=== PATIENT | male | born 1965 | race Caucasian/White ===

== ENCOUNTER 2016-12-17 06:18 | Emergency (ER) | payer OTHER ==
[2016-12-17] MEDS ORDERED: PROMETHAZINE 25 MG/1 ML VIAL IM STA (07:18)
[2016-12-17] MEDS ORDERED: KETOROLAC 60 MG/2 ML VIAL IM STA (07:18)
[2016-12-17] MEDS ORDERED: HYDROmorphone 1 MG/ML SYRINGE IM STA ×2 (07:18→08:10)
[2016-12-17] MEDS ORDERED: HYDROmorphone 1 MG/ML SYRINGE ONE ×2 (07:28→08:20)
[2016-12-17] MEDS ORDERED: KETOROLAC 60 MG/2 ML VIAL ONE (07:28)
[2016-12-17] MEDS ORDERED: PROMETHAZINE 25 MG/1 ML VIAL ONE (07:28)
[2016-12-17] MEDS ORDERED: diazePAM 5 MG TABLET PO STA (08:10)
[2016-12-17] MEDS ORDERED: diazePAM 5 MG TABLET PO ONE (08:20)
[2016-12-17] MEDS ORDERED: DEXAMETHASONE 10 MG/ML VIAL PO STA (09:08)
[2016-12-17] MEDS ORDERED: CHERRY SYRUP 10 ML UDC PO ONE (09:40)
[2016-12-17] MEDS ORDERED: DEXAMETHASONE 10 MG/ML VIAL ONE (09:40)
== END 2016-12-17 10:05 | disposition home or self-care (01) ==
DX: S39.012A Strain of muscle, fascia and tendon of lower back, initial encounter (principal); X50.0XXA Overexertion from strenuous movement or load, initial encounter; Y93.89 Activity, other specified; Y99.8 Other external cause status; M54.16 Radiculopathy, lumbar region; I10 Essential (primary) hypertension; E11.9 Type 2 diabetes mellitus without complications; Z79.84 Long term (current) use of oral hypoglycemic drugs; Z79.82 Long term (current) use of aspirin; F17.200 Nicotine dependence, unspecified, uncomplicated
CPT/HCPCS: 96372; 99283; 99284; A9270; J1170

== ENCOUNTER 2016-12-20 08:40 | Outpatient (CLI) | payer OTHER | END 2016-12-20 08:41 | disposition home or self-care (01) | DX: R07.9 Chest pain, unspecified (principal); I10 Essential (primary) hypertension ==

== ENCOUNTER 2016-12-25 17:27 | Emergency (ER) | payer OTHER ==
--- NOTE | 2016-12-25 17:52 | ED Physician Documentation ---
PD HPI BACK PAIN - Stated complaint Stated Complaint: LOWER BACK PAIN - Chief complaint Chief Complaint: Back Pain - History obtained from History obtained from: Patient - History of Present Illness Timing - duration: Weeks Timing - details: Still present Location: Lower, Right, Left Quality: Pain, Spasm Associated symptoms: No: Fever, Weakness, Numbness, Incontinent of urine Improves with: Meds (improved just moderately with 2-3 percocet 3 times daily.) . No: Rest Worsened by: Movement, Twisting Contributing factors: Twisting Similar symptoms before: No diagnosis Recently seen: Emergency Dept (in past week or so for this pain, given Rx for meds. Seen by [facility] ED 2-3 days ago and got IM/IV meds and was discharged after overnight for pain control. Referred to back specialist and referral going through. He had CT scan of the back, which patient says did not show obvious cause.) Review of Systems Constitutional: denies: Fever, Chills : denies: Incontinent Skin: denies: Rash, Lesions Neurologic: denies: Focal weakness, Numbness PD PAST MEDICAL HISTORY - Past Medical History Cardiovascular: Hypertension, High cholesterol Endocrine/Autoimmune: Type 2 diabetes Musculoskeletal: Chronic back pain - Past Surgical History Ortho: Spine surgery Cardiovascular: Coronary stent - Present Medications Home Medications: Ambulatory Orders Medication Instructions Recorded Confirmed Amlodipine Besylate 10 mg PO DAILY 12/17/16 12/25/16 Aspirin 81 mg PO DAILY 12/17/16 12/25/16 Atorvastatin Calcium 10 mg PO DAILY 12/17/16 12/25/16 Cyclobenzaprine [Flexeril] 10 mg PO Q8HR 12/17/16 12/25/16 Diazepam 5 mg PO TID PRN #20 tablet 12/17/16 12/25/16 Hydrochlorothiazide 75 mg PO DAILY 12/17/16 12/25/16 Ibuprofen [Motrin] 600 mg PO Q6HR 12/17/16 12/25/16 Metformin HCl 425 mg PO BID 12/17/16 12/25/16 Metoprolol Tartrate 25 mg PO BID 12/17/16 12/25/16 Potassium Chloride 10 meq PO DAILY 12/17/16 12/25/16 Cyclobenzaprine [Flexeril] 10 mg PO TID PRN #30 tablet 12/25/16 Diazepam 5 mg PO TID PRN #20 tablet 12/25/16 oxyCODONE [Roxicodone] 10 mg PO Q6H PRN #30 tablet 12/25/16 - Allergies Allergies/Adverse Reactions: Allergies Allergy/AdvReac Type Severity Reaction Status Date / Time No Known Drug Allergies Allergy Verified 12/25/16 17:37 - Social History Does the pt smoke?: Yes Smoking Status: Current every day smoker Does the pt drink ETOH?: No Does the pt have substance abuse?: No - Immunizations Immunizations are current?: Yes - POLST Patient has POLST: No PD ED PE NORMAL - Vitals Vital signs reviewed: Yes - General General: Alert and oriented X 3, Well developed/nourished, Other (appears in pain) - Neck Neck: Supple, no meningeal sign, No adenopathy - Cardiac Cardiac: RRR, No murmur - Respiratory Respiratory: Clear bilaterally - Abdomen Abdomen: Normal bowel sounds, Soft, Non tender, Non distended - Male Male : Deferred - Rectal Rectal: Deferred - Back Back: No CVA TTP, Other (tender lower lumbar left and right. No rash nor sores. ) - Derm Derm: Normal color, Warm and dry, No rash - Extremities Extremities: No edema, No calf tenderness / cord - Neuro Neuro: Alert and oriented X 3, No motor deficit, No sensory deficit, Normal speech - Psych Psych: Normal mood, Normal affect Results - Vitals Vitals: Oxygen O2 Source Room air PD MEDICAL DECISION MAKING - ED course Complexity details: considered differential (having significant pain but not an indication for emergent MRI. Routine MRI is not available at our facility right now. ), d/w patient Departure - Departure Disposition: 01 Home, Self Care Condition: Stable Record reviewed to determine appropriate education?: Yes Instructions: ED Sciatica, ED Low Back Pain General Follow-Up: [facility] [Provider Group] Prescriptions: Diazepam 5 mg PO TID PRN #20 tablet PRN Reason: Spasms Cyclobenzaprine [Flexeril] 10 mg PO TID PRN #30 tablet PRN Reason: Spasms oxyCODONE [Roxicodone] 10 mg PO Q6H PRN #30 tablet PRN Reason: Pain Comments: Follow up with [facility] and[facility]or [facility] regarding [facility]. Continue heat to the low back and gentle range of motion to reduce stiffness. Flexeril for muscle spasms, or Diazepam for worse muscle spasms. Oxycodone for pain as you have been doing. I wrote for higher strength tablets (10 mg instead of 5 mg) so be aware of the dosing change (1 - 1 1/2 tabs at a time). Discharge Date/Time: 12/25/16 18:44
[2016-12-25] MEDS ORDERED: KETOROLAC 60 MG/2 ML VIAL IM STA (18:06)
[2016-12-25] MEDS ORDERED: CYCLOBENZAPRINE 10 MG TABLET PO STA (18:06)
[2016-12-25] MEDS ORDERED: HYDROmorphone 1 MG/ML SYRINGE IM STA (18:06)
[2016-12-25] MEDS ORDERED: CYCLOBENZAPRINE 10 MG TABLET PO ONE (18:12)
[2016-12-25] MEDS ORDERED: HYDROmorphone 1 MG/ML SYRINGE ONE (18:12)
[2016-12-25] MEDS ORDERED: KETOROLAC 60 MG/2 ML VIAL ONE (18:12)
[2016-12-25 18:45] VITALS: BP 132/87
== END 2016-12-25 18:44 | disposition home or self-care (01) ==
LOC: ED 17:27
DX: M54.5 Low back pain (principal); G89.29 Other chronic pain; I10 Essential (primary) hypertension; E78.00 Pure hypercholesterolemia, unspecified; E11.9 Type 2 diabetes mellitus without complications; Z79.84 Long term (current) use of oral hypoglycemic drugs; Z79.82 Long term (current) use of aspirin; F17.200 Nicotine dependence, unspecified, uncomplicated
CPT/HCPCS: 96372; 99283; 99284; A9270; J1170

== ENCOUNTER 2016-12-29 | Outpatient (CLI) | payer OTHER | END 2016-12-29 22:25 | disposition short-term general hospital (02) | CPT/HCPCS: A0425; A0428 ==

== ENCOUNTER 2016-12-29 19:06 | Emergency (ER) | payer OTHER ==
[2016-12-29] MEDS ORDERED: HYDROmorphone 1 MG/ML SYRINGE IVP STA ×2 (20:05→21:20)
[2016-12-29] MEDS ORDERED: HYDROmorphone 1 MG/ML SYRINGE ONE ×2 (20:21→21:26)
== END 2016-12-29 22:21 | disposition short-term general hospital (02) ==
DX: M54.17 Radiculopathy, lumbosacral region (principal); M54.42 Lumbago with sciatica, left side; D72.829 Elevated white blood cell count, unspecified; E11.9 Type 2 diabetes mellitus without complications; Z79.84 Long term (current) use of oral hypoglycemic drugs; I10 Essential (primary) hypertension; I25.10 Atherosclerotic heart disease of native coronary artery without angina pectoris; Z95.5 Presence of coronary angioplasty implant and graft; Z79.82 Long term (current) use of aspirin; F17.200 Nicotine dependence, unspecified, uncomplicated
CPT/HCPCS: 36415; 80048; 85025; 85651; 86140; 87040; 96374; 96375; 99284; 99285; J1170

== ENCOUNTER 2016-12-31 06:29 | Emergency (ER) | payer OTHER ==
[2016-12-31] MEDS ORDERED: HYDROmorphone 1 MG/ML SYRINGE IM STA (07:02)
[2016-12-31] MEDS ORDERED: KETOROLAC 60 MG/2 ML VIAL IM STA (07:03)
[2016-12-31] MEDS ORDERED: DEXAMETHASONE 10 MG/ML VIAL PO STA (07:03)
[2016-12-31] MEDS ORDERED: diazePAM INJ 5 MG/ML SYRINGE IM STA (07:04)
[2016-12-31] MEDS ORDERED: HYDROmorphone 1 MG/ML SYRINGE ONE (07:14)
[2016-12-31] MEDS ORDERED: KETOROLAC 60 MG/2 ML VIAL ONE (07:15)
[2016-12-31] MEDS ORDERED: DEXAMETHASONE 10 MG/ML VIAL ONE (07:15)
[2016-12-31] MEDS ORDERED: CHERRY SYRUP 10 ML UDC PO ONE (07:15)
[2016-12-31] MEDS ORDERED: diazePAM INJ 5 MG/ML SYRINGE ONE (07:15)
== END 2016-12-31 09:14 | disposition home or self-care (01) ==
DX: M54.17 Radiculopathy, lumbosacral region (principal); I10 Essential (primary) hypertension; E11.9 Type 2 diabetes mellitus without complications; F17.200 Nicotine dependence, unspecified, uncomplicated; Z95.5 Presence of coronary angioplasty implant and graft; Z79.82 Long term (current) use of aspirin; Z79.84 Long term (current) use of oral hypoglycemic drugs
CPT/HCPCS: 96372; 99283; 99284; A9270; J1170

== ENCOUNTER 2017-01-04 11:38 | Emergency (ER) | payer OTHER ==
--- NOTE | 2017-01-04 12:39 | ED Physician Documentation ---
PD HPI BACK PAIN - Stated complaint Stated Complaint: BACK PAIN - Chief complaint Chief Complaint: Back Pain - History obtained from History obtained from: Patient - History of Present Illness Timing - onset: How many months ago (couple) Timing - details: Gradual onset, Still present Location: Lower, Left Quality: Pain Associated symptoms: Numbness (lateral lower leg c/w L4), Incontinent of urine ( he says he has had urinary incontinence during sleep last night. Had been told to watch for that.). No: Fever, Weakness Worsened by: Movement Similar symptoms before: Diagnosis (L4 disc protrusion and radiculitis.) Recently seen: Emergency Dept (many visits so far. Trying to get referral to back surgeon through [facility] and is supposed to have appt in the next few days.) Review of Systems Constitutional: denies: Fever, Chills GI: denies: Abdominal Pain, Constipation, Diarrhea, Bloody / black stool Skin: denies: Rash, Lesions PD PAST MEDICAL HISTORY - Past Medical History Past Medical History: Yes Cardiovascular: Hypertension, High cholesterol Endocrine/Autoimmune: Type 2 diabetes Musculoskeletal: Chronic back pain - Past Surgical History Ortho: Spine surgery Cardiovascular: Coronary stent - Present Medications Home Medications: Ambulatory Orders Medication Instructions Recorded Confirmed Amlodipine Besylate 10 mg PO DAILY 12/17/16 01/04/17 Aspirin 81 mg PO DAILY 12/17/16 01/04/17 Atorvastatin Calcium 10 mg PO DAILY 12/17/16 01/04/17 Cyclobenzaprine [Flexeril] 10 mg PO Q8HR 12/17/16 01/04/17 Diazepam 5 mg PO TID PRN #20 tablet 12/17/16 01/04/17 Hydrochlorothiazide 75 mg PO DAILY 12/17/16 01/04/17 Ibuprofen [Motrin] 600 mg PO Q6HR 12/17/16 01/04/17 Metformin HCl 425 mg PO BID 12/17/16 01/04/17 Metoprolol Tartrate 25 mg PO BID 12/17/16 01/04/17 Potassium Chloride 10 meq PO DAILY 12/17/16 01/04/17 Cyclobenzaprine [Flexeril] 10 mg PO TID PRN #30 tablet 12/25/16 01/04/17 oxyCODONE [Roxicodone] 10 mg PO Q6H PRN #30 tablet 12/25/16 01/04/17 Dexamethasone [Decadron] 4 mg PO DAILY #5 tablet 12/31/16 01/04/17 HYDROmorphone [Dilaudid] 2 mg PO Q6H PRN #30 tablet 12/31/16 01/04/17 HYDROmorphone [Dilaudid] 2 mg PO TID #20 tablet 01/04/17 oxyCODONE [Roxicodone] 10 mg PO TID #20 tablet 01/04/17 - Allergies Allergies/Adverse Reactions: Allergies Allergy/AdvReac Type Severity Reaction Status Date / Time No Known Drug Allergies Allergy Verified 01/04/17 11:41 - Social History Does the pt smoke?: Yes Smoking Status: Current every day smoker Does the pt drink ETOH?: No Does the pt have substance abuse?: No - Immunizations Immunizations are current?: Yes - POLST Patient has POLST: No PD ED PE NORMAL - Vitals Vital signs reviewed: Yes - General General: Alert and oriented X 3, Well developed/nourished, Other (appears in pain) - Back Back: No CVA TTP, Other (tender left lower back muscles. No rash. ) - Derm Derm: Normal color, Warm and dry, No rash - Extremities Extremities: Normal ROM s pain, No edema, No calf tenderness / cord - Neuro Neuro: No motor deficit, Normal speech, Other (normal sensation in perirectal and scrotum areas with sharp/dull discrimination. He has rectal tone. Bladder scanner shows appropriate residual and he did urinate here voluntarily. There is less sensation lateral left lower leg as previous. Mild faint weakness for dorsiflexion left foot. Rest is normal motor. ) Results - Vitals Vitals: Vital Signs - 24 hr 01/04/17 01/04/17 01/04/17 11:40 13:56 15:07 Temperature 36.1 C L Heart Rate 100 100 90 Respiratory 18 18 18 Rate Blood Pressure 147/101 H 148/94 H 144/89 H O2 Saturation 100 97 95 Oxygen O2 Source Room air - Labs Labs: Laboratory Tests 01/04/17 13:10 Urine Color YELLOW Urine Clarity CLEAR Urine pH 7.5 Ur Specific [place] 1.020 Urine Protein NEGATIVE Urine Glucose (UA) 250 H Urine Ketones NEGATIVE Urine Occult Blood NEGATIVE Urine Nitrite NEGATIVE Urine Bilirubin NEGATIVE Urine Urobilinogen 0.2 (NORMAL) Ur Leukocyte Esterase NEGATIVE Ur Microscopic Review NOT INDICATED Urine Culture Comments NOT INDICATED PD MEDICAL DECISION MAKING - ED course Complexity details: considered differential (he has had incontinence of urine by report. He is able to give urine sample here and has residual about 100 ml, so not obvious incontinence nor retention. Has normal rectal tone, sensation on penis and perirectal area. L4 area decreased sensation on left still. ), d/w patient Departure - Departure Disposition: 01 Home, Self Care Clinical Impression: Lumbosacral radiculopathy at L4 Condition: Stable Record reviewed to determine appropriate education?: Yes Instructions: ED Low Back Pain General Follow-Up: Reji Hewitt MD [Primary Care Provider] - [facility] [Provider Group] Prescriptions: HYDROmorphone [Dilaudid] 2 mg PO TID #20 tablet oxyCODONE [Roxicodone] 10 mg PO TID #20 tablet Comments: Continue pain medications. [facility] get [facility]. Your ongoing pain medications really need to transition to [facility], so please try to get back to them as soon as you can get appt. Discharge Date/Time: 01/04/17 15:09
[2017-01-04] MEDS ORDERED: KETOROLAC 60 MG/2 ML VIAL IM STA (12:52)
[2017-01-04] MEDS ORDERED: HYDROmorphone 1 MG/ML SYRINGE IM STA (12:52)
[2017-01-04] MEDS ORDERED: KETOROLAC 60 MG/2 ML VIAL ONE (12:55)
[2017-01-04] MEDS ORDERED: HYDROmorphone 1 MG/ML SYRINGE ONE (12:55)
[2017-01-04 14:03] LABS: BILIRUBIN,URINE NEGATIVE (NEGATIVE); PH,URINE 7.5 PH (5.0-7.5)
[2017-01-04 14:08] LABS: UA CHARGE (STRIP ONLY) YES; UR CULTURE IF IND NOT INDICATED
[2017-01-04 15:07] VITALS: BP 144/89
== END 2017-01-04 15:09 | disposition home or self-care (01) ==
LOC: ED 11:38
DX: M51.16 Intervertebral disc disorders with radiculopathy, lumbar region (principal); R32 Unspecified urinary incontinence; I10 Essential (primary) hypertension; E11.9 Type 2 diabetes mellitus without complications; Z79.84 Long term (current) use of oral hypoglycemic drugs; F17.200 Nicotine dependence, unspecified, uncomplicated; Z95.5 Presence of coronary angioplasty implant and graft; Z79.82 Long term (current) use of aspirin
CPT/HCPCS: 51798; 81003; 96372; 99283; 99284; J1170; 81001; 87086

== ENCOUNTER 2017-01-07 23:03 | Emergency (ER) | payer OTHER ==
[2017-01-08] MEDS ORDERED: PROMETHAZINE 25 MG/1 ML VIAL IM STA (00:44)
[2017-01-08] MEDS ORDERED: HYDROmorphone 1 MG/ML SYRINGE IM STA (00:44)
[2017-01-08] MEDS ORDERED: HYDROmorphone 1 MG/ML SYRINGE ONE (00:49)
[2017-01-08] MEDS ORDERED: PROMETHAZINE 25 MG/1 ML VIAL ONE (00:49)
[2017-01-08] MEDS ORDERED: KETOROLAC 60 MG/2 ML VIAL IM STA (01:38)
[2017-01-08] MEDS ORDERED: DEXAMETHASONE 10 MG/ML VIAL PO STA (01:39)
[2017-01-08] MEDS ORDERED: CHERRY SYRUP 10 ML UDC PO ONE (01:42)
[2017-01-08] MEDS ORDERED: DEXAMETHASONE 10 MG/ML VIAL ONE (01:42)
[2017-01-08] MEDS ORDERED: KETOROLAC 60 MG/2 ML VIAL ONE (01:42)
== END 2017-01-08 03:21 | disposition home or self-care (01) ==
DX: M54.16 Radiculopathy, lumbar region (principal); Z79.82 Long term (current) use of aspirin; I10 Essential (primary) hypertension; F17.200 Nicotine dependence, unspecified, uncomplicated
CPT/HCPCS: 96372; 99283; 99284; A9270; J1170

== ENCOUNTER 2017-01-11 | Outpatient (CLI) | payer OTHER | END 2017-01-11 21:24 | disposition critical access hospital (66) | DX: M54.5 Low back pain (principal) | CPT/HCPCS: A0425; A0429 ==

== ENCOUNTER 2017-01-11 21:34 | Emergency (ER) | payer OTHER ==
[2017-01-11] MEDS ORDERED: PROMETHAZINE 25 MG/1 ML VIAL IM STA (22:24)
[2017-01-11] MEDS ORDERED: DEXAMETHASONE 10 MG/ML VIAL PO STA (22:24)
[2017-01-11] MEDS ORDERED: HYDROmorphone 1 MG/ML SYRINGE IM STA ×2 (22:24→22:25)
[2017-01-11] MEDS ORDERED: KETOROLAC 60 MG/2 ML VIAL IM STA (22:26)
[2017-01-11] MEDS ORDERED: PROMETHAZINE 25 MG/1 ML VIAL ONE ×2 (22:36→22:40)
[2017-01-11] MEDS ORDERED: CHERRY SYRUP 10 ML UDC PO ONE ×2 (22:37→22:40)
[2017-01-11] MEDS ORDERED: HYDROmorphone 1 MG/ML SYRINGE ONE (22:37)
[2017-01-11] MEDS ORDERED: KETOROLAC 60 MG/2 ML VIAL ONE (22:37)
[2017-01-11] MEDS ORDERED: DEXAMETHASONE 10 MG/ML VIAL ONE (22:37)
== END 2017-01-12 00:05 | disposition home or self-care (01) ==
DX: M54.16 Radiculopathy, lumbar region (principal); R32 Unspecified urinary incontinence; I10 Essential (primary) hypertension; E11.9 Type 2 diabetes mellitus without complications; E78.00 Pure hypercholesterolemia, unspecified; Z79.82 Long term (current) use of aspirin; F17.200 Nicotine dependence, unspecified, uncomplicated
CPT/HCPCS: 96372; 99283; 99284; A9270; J1170

== ENCOUNTER 2017-01-16 01:43 | Emergency (ER) | payer OTHER ==
[2017-01-16] MEDS ORDERED: KETOROLAC 60 MG/2 ML VIAL IM STA (02:19)
[2017-01-16] MEDS ORDERED: HYDROmorphone 1 MG/ML SYRINGE IM STA ×2 (02:19→06:54)
[2017-01-16] MEDS ORDERED: PROMETHAZINE 25 MG/1 ML VIAL IM STA (02:20)
[2017-01-16] MEDS ORDERED: HYDROmorphone 1 MG/ML SYRINGE ONE ×2 (02:21→07:03)
[2017-01-16] MEDS ORDERED: PROMETHAZINE 25 MG/1 ML VIAL ONE (02:21)
[2017-01-16] MEDS ORDERED: KETOROLAC 60 MG/2 ML VIAL ONE (02:22)
[2017-01-16] MEDS ORDERED: SODIUM CHLORIDE 0.9% 1,000 ML IV ONE ×2 (03:09→03:51)
[2017-01-16] MEDS ORDERED: POTASSIUM BICARB 25 MEQ TABLET PO STA (03:51)
[2017-01-16] MEDS ORDERED: POTASSIUM BICARB 25 MEQ TABLET PO ONE (04:06)
[2017-01-16] MEDS ORDERED: INSULIN REGULAR HUMAN 100 UNIT/1 ML 10 ML MDV IVP STA (04:55)
[2017-01-16] MEDS ORDERED: INSULIN REGULAR HUMAN 100 UNIT/1 ML 10 ML MDV ONE (05:16)
== END 2017-01-16 07:16 | disposition home or self-care (01) ==
DX: M54.17 Radiculopathy, lumbosacral region (principal); E86.0 Dehydration; E11.65 Type 2 diabetes mellitus with hyperglycemia; I10 Essential (primary) hypertension; E78.00 Pure hypercholesterolemia, unspecified; G89.29 Other chronic pain; Z79.82 Long term (current) use of aspirin; Z79.84 Long term (current) use of oral hypoglycemic drugs; Z87.891 Personal history of nicotine dependence

== ENCOUNTER 2017-01-16 19:28 | Emergency (ER) | payer OTHER ==
[2017-01-16] MEDS ORDERED: LIDOCAINE PATCH 5% TOP STA (21:30)
[2017-01-16] MEDS ORDERED: KETOROLAC 60 MG/2 ML VIAL IM STA (21:30)
[2017-01-16] MEDS ORDERED: KETOROLAC 30 MG/ML VIAL IVP STA (21:33)
[2017-01-16] MEDS ORDERED: ACETAMINOPHEN 1,000 MG/100 ML 100 ML IV STA (21:33)
[2017-01-16] MEDS ORDERED: LIDOCAINE PATCH 5% TOP ONE (21:35)
[2017-01-16] MEDS ORDERED: ACETAMINOPHEN 1,000 MG/100 ML 100 ML IV ONE (21:35)
[2017-01-16] MEDS ORDERED: KETOROLAC 30 MG/ML VIAL ONE (21:35)
[2017-01-16] MEDS ORDERED: KETAMINE 500 MG/10 ML VIAL IVP STA (22:37)
[2017-01-16] MEDS ORDERED: KETAMINE 500 MG/10 ML VIAL ONE (22:53)
== END 2017-01-16 23:35 | disposition home or self-care (01) ==
DX: M54.17 Radiculopathy, lumbosacral region (principal); G89.29 Other chronic pain; E86.0 Dehydration; I10 Essential (primary) hypertension; E78.00 Pure hypercholesterolemia, unspecified; E11.65 Type 2 diabetes mellitus with hyperglycemia; Z79.84 Long term (current) use of oral hypoglycemic drugs; Z79.82 Long term (current) use of aspirin; Z87.891 Personal history of nicotine dependence
CPT/HCPCS: 36415; 80053; 83690; 85025; 96360; 96361; 96372; 99283; 99284; 99285; A9270; J0131; J1170; J1815

== ENCOUNTER 2017-07-04 09:32 | Outpatient (CLI) | payer OTHER ==
[2017-07-04 10:15] LABS: BASOPHILS # (AUTO) 0.1 10^3/uL (0.0-0.1); BASOPHILS % (AUTO) 0.9 %; EOSINOPHILS # (AUTO) 0.2 10^3/uL (0.0-0.7); EOSINOPHILS % (AUTO) 2.3 %; HCT - HEMATOCRIT 46.4 % (42.0-52.0); HGB - HEMOGLOBIN 16.1 g/dL (14.0-18.0); LYMPHOCYTES # (AUTO) 1.9 10^3/uL (1.5-3.5); LYMPHOCYTES % (AUTO) 20.7 %; MEAN CORPUSCULAR HEMOGLOBIN 31.5 pg (27.0-31.0); MEAN CORPUSCULAR HGB CONC 34.7 g/dL (32.0-36.0); MEAN CORPUSCULAR VOLUME 90.7 fL (80.0-94.0); MEAN PLATELET VOLUME 9.4 fL (7.4-11.4); MONOCYTES # (AUTO) 0.6 10^3/uL (0.0-1.0); MONOCYTES % (AUTO) 6.4 %; NEUTROPHILS # (AUTO) 6.2 10^3/uL (1.5-6.6); NEUTROPHILS % (AUTO) 69.7 %; NUCLEATED RED BLOOD CELLS AUTO 0.1 /100WBC; RED BLOOD COUNT 5.12 10^6/uL (4.70-6.10); RED CELL DISTRIBUTION WIDTH 13.8 % (12.0-15.0); UNCORRECTED WHITE BLOOD COUNT 8.9 x10^3/uL; WHITE BLOOD COUNT 8.9 x10^3/uL (4.8-10.8)
[2017-07-04 10:52] LABS: HEMOGLOBIN A1C 1.18 g/dL
[2017-07-04 10:55] LABS: ALBUMIN/GLOBULIN RATIO 1.6 (1.0-2.2); BILIRUBIN,TOTAL 0.9 mg/dL (0.2-1.0); BUN - BLOOD UREA NITROGEN 15 mg/dL (6-20); CALCIUM 9.4 mg/dL (8.5-10.3); CARBON DIOXIDE - CO2 27 mmol/L (21-32); CHLORIDE 101 mmol/L (101-111); CHOLESTEROL 144 mg/dL; CREATININE 1.1 mg/dL (0.6-1.2); GFR - MDRD 70 (>89); GLUCOSE 220 mg/dL (70-100); HDL CHOLESTEROL 29 mg/dL; LDL/HDL RATIO 2.4 (<3.6); SODIUM 138 mmol/L (135-145); TOTAL PROTEIN 7.4 g/dL (6.7-8.2); TRIGLYCERIDES 227 mg/dL; VLDL CHOLESTEROL 45 mg/dL
== END 2017-07-04 09:33 | disposition home or self-care (01) ==
LOC: LAB 09:32
PROVIDERS: ATTEND Internal Medicine
DX: E03.9 Hypothyroidism, unspecified (principal)
CPT/HCPCS: 36415; 80053; 80061; 83036; 84153; 84443; 85025

== ENCOUNTER 2017-10-19 13:44 | Emergency (ER) | payer OTHER ==
[2017-10-19] MEDS ORDERED: KETOROLAC 30 MG/ML VIAL IVP STA (14:47)
[2017-10-19] MEDS ORDERED: diazePAM 5 MG TABLET PO STA (14:48)
[2017-10-19] MEDS ORDERED: KETOROLAC 30 MG/ML VIAL ONE (14:55)
[2017-10-19] MEDS ORDERED: diazePAM 5 MG TABLET PO ONE (14:55)
[2017-10-19] MEDS ORDERED: HYDROmorphone 1 MG/ML SYRINGE IM STA ×2 (15:47→16:38)
[2017-10-19] MEDS ORDERED: HYDROmorphone 1 MG/ML SYRINGE ONE ×2 (15:58→16:59)
--- NOTE | 2017-10-19 16:40 | ED Physician Documentation ---
History of Present Illness - Stated complaint Stated Complaint: LOW BACK AND BODY PAIN - Chief complaint Chief Complaint: Back Pain - History obtained from History obtained from: Patient (pt here for acute increase in his low back pain. he staes that yesterday that he bent over to pick something up and had an increase in pain.) Review of Systems Constitutional: denies: Fever, Chills Cardiac: denies: Chest pain / pressure, Palpitations Respiratory: denies: Dyspnea, Cough, Hemoptysis GI: denies: Abdominal Pain, Nausea, Vomiting, Constipation, Diarrhea : denies: Dysuria, Unable to Void, Incontinent, Hematuria Skin: denies: Rash, Lesions Musculoskeletal: reports: Back pain. denies: Joint pain, Extremity swelling, Joint swelling Neurologic: reports: Other (tingling down left leg to knee). denies: Generalized weakness, Focal weakness, Headache PD PAST MEDICAL HISTORY - Past Medical History Past Medical History: Yes Cardiovascular: Hypertension, High cholesterol Endocrine/Autoimmune: Type 2 diabetes Musculoskeletal: Chronic back pain - Past Surgical History Past Surgical History: Yes Ortho: Spine surgery Cardiovascular: Coronary stent - Present Medications Home Medications: Ambulatory Orders Medication Instructions Recorded Confirmed Amlodipine Besylate 10 mg PO DAILY 12/17/16 10/19/17 Aspirin 81 mg PO DAILY 12/17/16 10/19/17 Atorvastatin Calcium 10 mg PO DAILY 12/17/16 10/19/17 Ibuprofen [Motrin] 600 mg PO Q6HR 12/17/16 10/19/17 Metformin HCl 425 mg PO BID 12/17/16 10/19/17 Metoprolol Tartrate 25 mg PO BID 12/17/16 10/19/17 Potassium Chloride 10 meq PO DAILY 12/17/16 10/19/17 hydroCHLOROthiazide 75 mg PO DAILY 12/17/16 10/19/17 [Hydrochlorothiazide] Gabapentin 1,000 mg PO TID 10/19/17 10/19/17 oxyCODONE [Roxicodone] 5 mg PO TID 10/19/17 10/19/17 - Allergies Allergies/Adverse Reactions: Allergies Allergy/AdvReac Type Severity Reaction Status Date / Time No Known Drug Allergies Allergy Verified 10/19/17 13:57 - Social History Does the pt smoke?: No Smoking Status: Never smoker Does the pt drink ETOH?: No Does the pt have substance abuse?: No - Immunizations Immunizations are current?: Yes - POLST Patient has POLST: No PD ED PE NORMAL - Vitals Vital signs reviewed: Yes - General General: Alert and oriented X 3, Well developed/nourished - Cardiac Cardiac: RRR, No murmur - Respiratory Respiratory: No respiratory distress, Clear bilaterally - Abdomen Abdomen: Soft, Non tender, Non distended - Derm Derm: Normal color, Warm and dry, No rash - Extremities Extremities: No deformity, Normal ROM s pain, No edema. No: No tenderness to palpate (TTP anterior right thigh ) - Neuro Neuro: Alert and oriented X 3 Eye Opening: Spontaneous Motor: Obeys Commands Verbal: Oriented GCS Score: 15 Results - Vitals Vitals: Vital Signs - 24 hr 10/19/17 10/19/17 10/19/17 13:53 15:54 16:00 Temperature 36.7 C 36.7 C 36.8 C Heart Rate 109 H 104 H 101 H Respiratory 16 24 22 Rate Blood Pressure 164/106 H 154/93 H 143/86 H O2 Saturation 97 100 98 Oxygen O2 Source Room air PD MEDICAL DECISION MAKING - ED course Complexity details: d/w patient ED course: Pt with acute on chronic lower back pain No indication of CA or fracture. Pt given IM medications in the ER. he has pain medications at home. he has a pain specialist. will follow up with his primary care provider. Departure - Departure Disposition: 01 Home, Self Care Clinical Impression: Back pain Condition: Good Instructions: ED Sciatica, ED Low Back Pain Injury Follow-Up: primary,care provider [Other] Comments: Return to the ER for any new or worsening symptoms. You need to call your face painter to discuss further pain control.
[2017-10-19 17:42] VITALS: BP 161/98
== END 2017-10-19 17:37 | disposition home or self-care (01) ==
LOC: ED 13:44
DX: M54.5 Low back pain (principal); G89.29 Other chronic pain; I10 Essential (primary) hypertension; E78.00 Pure hypercholesterolemia, unspecified; E11.9 Type 2 diabetes mellitus without complications; Z79.84 Long term (current) use of oral hypoglycemic drugs; Z79.82 Long term (current) use of aspirin
CPT/HCPCS: 96372; 96374; 99283; 99284; A9270; J1170

== ENCOUNTER 2017-10-20 23:05 | Emergency (ER) | payer OTHER ==
--- NOTE | 2017-10-21 00:35 | ED Physician Documentation ---
PD HPI BACK PAIN - Stated complaint Stated Complaint: L LEG/BACK PAIN - Chief complaint Chief Complaint: Back Pain - History obtained from History obtained from: Patient - History of Present Illness Timing - onset: How many days ago (3 days ago) Timing - duration: Days (had been having ongoing back pain but much less subsequent to surgery January and July. Then felt onset of back pain with just bending over and simple lifting several days ago and having significant pain and spasms of lumbar area. He called his back surgeon who will be seeing him Sunday. Also emailed his Pain Clinic provider. He is taking increased dose of Oxycodone from 4 tabs to 6 tabs daily, without much improvement in pain. Seen in ED yesterday with IM meds that improved pain only moderately and was worse again few hours later.) Timing - details: Abrupt onset, Still present, Waxing and waning Location: Lower, Left Quality: Pain, Spasm, Sharp Associated symptoms: Numbness (left anterolateral thigh, but stops at knee.). No: Fever, Weakness Improves with: No: Rest Worsened by: Movement, Twisting, Palpation Contributing factors: Twisting Similar symptoms before: Diagnosis (lumbar disc problems with pinched nerves) Recently seen: Not recently seen Review of Systems Constitutional: denies: Fever, Chills Throat: denies: Sore throat Cardiac: denies: Chest pain / pressure Respiratory: denies: Cough GI: denies: Abdominal Pain, Nausea, Vomiting, Diarrhea : denies: Dysuria, Frequency, Incontinent Skin: denies: Rash, Lesions Musculoskeletal: reports: Back pain Neurologic: reports: Numbness (lateral thigh left). denies: Focal weakness Endocrine: denies: Weight loss, Easy bruising / bleeding Immunocompromised: denies: Immunocompromised PD PAST MEDICAL HISTORY - Past Medical History Cardiovascular: Hypertension, High cholesterol Endocrine/Autoimmune: Type 2 diabetes Musculoskeletal: Chronic back pain - Past Surgical History Past Surgical History: Yes Ortho: Spine surgery Cardiovascular: Coronary stent - Present Medications Home Medications: Ambulatory Orders Medication Instructions Recorded Confirmed Amlodipine Besylate 10 mg PO DAILY 12/17/16 10/20/17 Aspirin 81 mg PO DAILY 12/17/16 10/20/17 Atorvastatin Calcium 10 mg PO DAILY 12/17/16 10/20/17 Ibuprofen [Motrin] 600 mg PO Q6HR 12/17/16 10/20/17 Metformin HCl 425 mg PO BID 12/17/16 10/20/17 Metoprolol Tartrate 25 mg PO BID 12/17/16 10/20/17 Potassium Chloride 10 meq PO DAILY 12/17/16 10/20/17 hydroCHLOROthiazide 75 mg PO DAILY 12/17/16 10/20/17 [Hydrochlorothiazide] Gabapentin 1,000 mg PO TID 10/19/17 10/20/17 oxyCODONE [Roxicodone] 5 mg PO TID 10/19/17 10/20/17 Baclofen 10 mg PO TID #15 tablet 10/21/17 Naproxen [Naprosyn] 500 mg PO BID PRN #15 tablet 10/21/17 - Allergies Allergies/Adverse Reactions: Allergies Allergy/AdvReac Type Severity Reaction Status Date / Time No Known Drug Allergies Allergy Verified 10/20/17 23:21 - Social History Does the pt smoke?: No Smoking Status: Never smoker Does the pt drink ETOH?: No Does the pt have substance abuse?: No - Immunizations Immunizations are current?: Yes - POLST Patient has POLST: No PD ED PE NORMAL - Vitals Vital signs reviewed: Yes - General General: Alert and oriented X 3, Well developed/nourished, Other (appears in pain, with moaning and cries out with ROM of the low back. ) - Neck Neck: Supple, no meningeal sign, No adenopathy - Cardiac Cardiac: RRR, No murmur - Respiratory Respiratory: Clear bilaterally - Abdomen Abdomen: Normal bowel sounds, Soft, Non tender, Non distended - Male Male : Deferred - Rectal Rectal: Deferred - Back Back: No CVA TTP, Other (tender lumbar left side muscles without rash nor redness. ) - Derm Derm: Normal color, Warm and dry - Extremities Extremities: No tenderness to palpate, Normal ROM s pain, No edema, No calf tenderness / cord - Neuro Neuro: Alert and oriented X 3, appraisal analyst 2-12 intact, No motor deficit, Other (less sensation to touch lateral anterior left thigh. Normal reflex at knee. Good movement/sensation in ankles/feet. ) Results - Vitals Vitals: Vital Signs - 24 hr 10/20/17 10/21/17 10/21/17 23:16 01:47 02:41 Temperature 36.9 C Heart Rate 124 H 100 100 Respiratory 18 20 18 Rate Blood Pressure 153/102 H 167/83 H 183/106 H O2 Saturation 97 100 100 10/21/17 10/21/17 10/21/17 03:53 04:49 05:14 Temperature 37.0 C Heart Rate 100 105 H 107 H Respiratory 20 18 16 Rate Blood Pressure 175/98 H 178/100 H 169/101 H O2 Saturation 100 98 96 Oxygen O2 Source Room air PD MEDICAL DECISION MAKING - ED course Complexity details: reviewed old records (had fairly intractable pain on many ED visits December 2016 prior to back surgery. No visits until yesterday. Appears very uncomfortable. No real indication to need emergent imaging. Will try IV meds, and prior ED notes from December show that he had gotten good improvement with Ketamine in addition to usual other meds. Can try that as well. ), reviewed results, re-evaluated patient (took several doses and rounds of medications to decrease the pain to tolerable level (5-6 pain level). Can change muscle relaxant - he says Baclofen had worked well in past. He is on Oxycodone on pain contract, so meds through the Pain Clinic. Short term can increase dose of his PO meds. ), considered differential, d/w patient Departure - Departure Disposition: Home, Self Care Clinical Impression: Lumbar back pain Sciatica Qualifiers: Laterality: left Qualified Code(s): M54.32 - Sciatica, left side Condition: Stable Record reviewed to determine appropriate education?: Yes Instructions: ED Sciatica Follow-Up: BARBARA [facility]IN [facility] [Primary Care Provider] - Prescriptions: Baclofen 10 mg PO TID #15 tablet Naproxen [Naprosyn] 500 mg PO BID PRN #15 tablet PRN Reason: Pain Comments: Continue current pain meds, with increased dose from 5 mg 4 times daily to 10 mg for tomorrow and Sunday, until seen by [facility] as planned and can talk with your Pain Clinic. Baclofen for muscle spasms as needed. Continue gabapentin and other usual medications. Discharge Date/Time: 10/21/17 05:16
[2017-10-21] MEDS ORDERED: HYDROmorphone 1 MG/ML SYRINGE IVP STA ×3 (00:49→04:42)
[2017-10-21] MEDS ORDERED: KETOROLAC 60 MG/2 ML VIAL IVP STA (00:49)
[2017-10-21] MEDS ORDERED: KETAMINE 500 MG/10 ML VIAL IVP STA ×2 (00:50→03:37)
[2017-10-21] MEDS ORDERED: SODIUM CHLORIDE 0.9% 1,000 ML IV ONE (00:51)
[2017-10-21] MEDS ORDERED: DEXAMETHASONE 10 MG/ML VIAL IVP STA (00:52)
[2017-10-21] MEDS ORDERED: HYDROmorphone 1 MG/ML SYRINGE ONE ×3 (00:59→04:45)
[2017-10-21] MEDS ORDERED: KETOROLAC 30 MG/ML VIAL ONE (00:59)
[2017-10-21] MEDS ORDERED: DEXAMETHASONE 10 MG/ML VIAL ONE (02:16)
[2017-10-21] MEDS ORDERED: KETAMINE 500 MG/10 ML VIAL ONE ×2 (02:16→03:55)
[2017-10-21] MEDS ORDERED: diazePAM INJ 5 MG/ML SYRINGE IVP STA (03:37)
[2017-10-21] MEDS ORDERED: diazePAM INJ 5 MG/ML SYRINGE ONE (03:55)
[2017-10-21 05:16] VITALS: BP 169/101
== END 2017-10-21 05:16 | disposition home or self-care (01) ==
LOC: ED 23:05
DX: M54.42 Lumbago with sciatica, left side (principal); I10 Essential (primary) hypertension; E11.9 Type 2 diabetes mellitus without complications; Z79.84 Long term (current) use of oral hypoglycemic drugs; E78.00 Pure hypercholesterolemia, unspecified; Z79.82 Long term (current) use of aspirin
CPT/HCPCS: 96374; 96375; 96376; 99283; 99284; J1170

== ENCOUNTER 2017-10-25 04:13 | Emergency (ER) | payer OTHER ==
[2017-10-25] MEDS ORDERED: diazePAM 5 MG TABLET PO STA ×2 (04:25→05:56)
[2017-10-25] MEDS ORDERED: KETAMINE 500 MG/10 ML VIAL IM STA (04:27)
[2017-10-25] MEDS ORDERED: KETAMINE 500 MG/10 ML VIAL ONE (04:38)
--- NOTE | 2017-10-25 04:49 | ED Physician Documentation ---
PD HPI BACK INJURY - Stated complaint Stated Complaint: BACK PX - History obtained from History obtained from: Patient, Family - History of Present Illness Location: Left, Lower Type of injury: Fall Where injury occurred: Home Timing - onset: Today Timing - details: Abrupt onset Quality: Pain, Spasm Associated symptoms: No: Fever, Weakness, Numbness, Incontinent of urine Similar symptoms before: Work up / diagnostics, Treatment, Follow up Recently seen: Clinic - Additional information Additional information: Patient is a 52 year old male with a history of chronic back pain, with previous spinal surgeries and multiple ER visits. patient stated that tonight he was getting up to go urinate and he was trying to ambulate with his walker and he fall, exacerbating his back pain. patient states that he doesn't know how he fell exactly, or what he landed on. (no loc, just didn't know how he landed). Patient states that he did follow up with his spinal doctor recently and they switched him to methadon and stated that he might need another surgery. Review of Systems Constitutional: denies: Fever, Chills Eyes: reports: Reviewed and negative Ears: reports: Reviewed and negative Nose: reports: Reviewed and negative Throat: reports: Reviewed and negative Cardiac: reports: Reviewed and negative Respiratory: reports: Reviewed and negative GI: reports: Reviewed and negative : reports: Reviewed and negative Skin: reports: Reviewed and negative Musculoskeletal: reports: Back pain, Extremity pain Neurologic: denies: Generalized weakness, Focal weakness, Numbness, Headache, Head injury PD PAST MEDICAL HISTORY - Past Medical History Cardiovascular: Hypertension, High cholesterol Endocrine/Autoimmune: Type 2 diabetes Musculoskeletal: Chronic back pain - Past Surgical History Past Surgical History: Yes Ortho: Spine surgery Cardiovascular: Coronary stent - Present Medications Home Medications: Ambulatory Orders Medication Instructions Recorded Confirmed Amlodipine Besylate 10 mg PO DAILY 12/17/16 10/25/17 Aspirin 81 mg PO DAILY 12/17/16 10/25/17 Atorvastatin Calcium 10 mg PO DAILY 12/17/16 10/25/17 Ibuprofen [Motrin] 600 mg PO Q6HR 12/17/16 10/25/17 Metformin HCl 425 mg PO BID 12/17/16 10/25/17 Metoprolol Tartrate 25 mg PO BID 12/17/16 10/25/17 Potassium Chloride 10 meq PO DAILY 12/17/16 10/25/17 hydroCHLOROthiazide 75 mg PO DAILY 12/17/16 10/25/17 [Hydrochlorothiazide] Gabapentin 1,000 mg PO TID 10/19/17 10/25/17 Baclofen 10 mg PO TID #15 tablet 10/21/17 10/25/17 Naproxen [Naprosyn] 500 mg PO BID PRN #15 tablet 10/21/17 10/25/17 Methadone 1 tab PO BID 10/25/17 10/25/17 - Allergies Allergies/Adverse Reactions: Allergies Allergy/AdvReac Type Severity Reaction Status Date / Time No Known Drug Allergies Allergy Verified 10/25/17 04:22 - Social History Does the pt smoke?: No Smoking Status: Never smoker Does the pt drink ETOH?: No Does the pt have substance abuse?: No - Immunizations Immunizations are current?: Yes - POLST Patient has POLST: No Results - Vitals Vitals: Vital Signs - 24 hr 10/25/17 10/25/17 10/25/17 04:19 04:44 05:21 Temperature 36.5 C Heart Rate 111 H 110 H 104 H Respiratory 20 18 18 Rate Blood Pressure 190/102 H 150/80 H 164/66 H O2 Saturation 97 98 98 Oxygen O2 Source Room air - Labs Labs: Laboratory Tests 10/25/17 05:16 POC Whole Bld Glucose 204 H - Rads (name of study) lumbar spine Radiology: Final report received (no acute fracture or dislocation) PD MEDICAL DECISION MAKING - ED course Complexity details: reviewed old records, reviewed results, re-evaluated patient , considered differential, d/w patient ED course: Patient was seen and examined at bedside. patient was in moderate pain. Patient is on a pain contract and a diabetic so patient was treated with ketamine 20mg IM. Due to the fall, imaging was ordered. When patient returned from imaging the results were reviewed. there were no acute abnormalities. Patient was moving his extremity and showed no neurological deficit. Patient was treated with valium 10mg. Patient's pain was chronic in nature. Patient required no further emergent work up and was stable for discharge with outpatient follow up. Departure - Departure Disposition: Home, Self Care Clinical Impression: Radiculitis Condition: Good Instructions: ED Low Back Pain Injury Follow-Up: primary,care provider [Other] - Tomorrow Comments: Your diagnostics today were within normal limits. there are no acute abnormalities on your imaging. You will need to continue to follow up with your pmd, pain specialist and surgeon for further pain management. You may return to the emergency department for new symptoms.
--- NOTE | 2017-10-25 05:34 | XRAY Preliminary Report ---
Exam: XR SACRUM/COCCYX IMPRESSION: 1. No acute abnormality seen. [facility] SITE ID: [id number]
--- NOTE | 2017-10-25 05:36 | XRAY Preliminary Report ---
Exam: XR LUMBAR SPINE 2 VIEW IMPRESSION: 1. Multilevel degenerative changes. No acute abnormality seen. [facility] SITE ID: [id number]
--- NOTE | 2017-10-25 05:37 | XRAY Report ---
EXAM: SACRUM AND COCCYX RADIOGRAPHY EXAM DATE: 10/25/2017 05:23 AM. HISTORY: Fall, low back pain. COMPARISONS: None. TECHNIQUE: 3 views. FINDINGS: Alignment: Unremarkable. Bones: No fracture seen. Joints: No dislocation. Soft Tissues: Grossly unremarkable. IMPRESSION: 1. No acute abnormality seen. [facility] Referring Provider Line: [phone] SITE ID: [id number]
--- NOTE | 2017-10-25 05:38 | XRAY Report ---
EXAM: LUMBOSACRAL SPINE RADIOGRAPHY EXAM DATE: 10/25/2017 05:22 AM. CLINICAL HISTORY: Low back pain after injury. COMPARISONS: None. TECHNIQUE: 2 views. FINDINGS: Alignment: Unremarkable. Bones: Five [id number] lumbar vertebral bodies are present. No fractures or bone lesions. Disks: Multilevel degenerative disk disease, especially L3-L4 and L4-L5. Facets: Degenerative joint disease in the lower lumbar spine. Sacroiliac Joints: Unremarkable. Soft Tissues: Vascular calcifications. IMPRESSION: 1. Multilevel degenerative changes. No acute abnormality seen. [facility] Referring Provider Line: [phone] SITE ID: [id number]
[2017-10-25] MEDS ORDERED: diazePAM 5 MG TABLET PO ONE (06:09)
[2017-10-25 06:41] VITALS: BP 200/96
== END 2017-10-25 06:45 | disposition home or self-care (01) ==
LOC: ED 04:13
DX: M54.16 Radiculopathy, lumbar region (principal); W01.0XXA Fall on same level from slipping, tripping and stumbling without subsequent striking against object, initial encounter; Y93.01 Activity, walking, marching and hiking; Y92.019 Unspecified place in single-family (private) house as the place of occurrence of the external cause; M54.5 Low back pain; G89.29 Other chronic pain; I10 Essential (primary) hypertension; E78.00 Pure hypercholesterolemia, unspecified; E11.9 Type 2 diabetes mellitus without complications; Z79.84 Long term (current) use of oral hypoglycemic drugs; Z79.82 Long term (current) use of aspirin
CPT/HCPCS: 72100; 72220; 96372; 99283; A9270

== ENCOUNTER 2018-08-14 13:16 | Day surgery (SDC) | payer OTHER ==
[2018-08-14] MEDS ORDERED: LACTATED RINGERS 1,000 ML IV ONE (14:01)
--- NOTE | 2018-08-14 15:26 | ANESTHESIA ---
Pre-Anesthesia VS, & Labs - Diagnosis history of polyps - Procedure colonoscopy Vital Signs: Temp Pulse Resp BP Pulse Ox 36.2 C L 92 16 130/97 H 98 08/14/18 14:08 08/14/18 14:08 08/14/18 14:08 08/14/18 14:08 08/14/18 14:08 Height 5 ft 10 in Weight (kg) 107 kg Body Mass Index 34.4 - NPO >8 hours - Lab Results Current Lab Results: Laboratory Tests 08/14/18 14:14: POC Whole Bld Glucose 177 H Lab results reviewed: Yes Home Medications and Allergies Home Medications: Ambulatory Orders Medication Instructions Recorded Confirmed Amlodipine Besylate 10 mg PO DAILY 12/17/16 08/13/18 Aspirin 81 mg PO DAILY 12/17/16 08/14/18 Atorvastatin Calcium 10 mg PO DAILY 12/17/16 08/13/18 Metformin HCl 850 mg PO BID 12/17/16 08/13/18 Metoprolol Tartrate 75 mg PO BID 12/17/16 08/14/18 Potassium Chloride 10 meq PO DAILY 12/17/16 08/13/18 hydroCHLOROthiazide 75 mg PO DAILY 12/17/16 08/13/18 [Hydrochlorothiazide] Gabapentin 800 mg PO BID 10/19/17 08/14/18 Naproxen [Naprosyn] 500 mg PO BID PRN #15 tablet 10/21/17 08/13/18 Amlodipine Besylate 10 mg PO DAILY 12/17/16 Aspirin 81 mg PO DAILY 12/17/16 Atorvastatin Calcium 10 mg PO DAILY 12/17/16 Metformin HCl 850 mg PO BID 12/17/16 Metoprolol Tartrate 75 mg PO BID 12/17/16 Potassium Chloride 10 meq PO DAILY 12/17/16 hydroCHLOROthiazide [Hydrochlorothiazide] 75 mg PO DAILY 12/17/16 Gabapentin 800 mg PO BID 10/19/17 Allergies/Adverse Reactions: Allergies Allergy/AdvReac Type Severity Reaction Status Date / Time No Known Drug Allergies Allergy Verified 10/25/17 04:22 Anes History & Medical History - Anesthetic History Anesthesia Complications: reports: No previous complications Family history of Anesthesia Complications: Denies Family history of Malignant Hyperthermia: Denies - Medical History Cardiovascular: reports: Hypertension, High cholesterol, Coronary artery disease Pulmonary: reports: Sleep apnea Gastrointestinal: reports: None Urinary: reports: Benign prostate hypertrophy Musculoskeletal: reports: Chronic back pain Endocrine/Autoimmune: reports: Type 2 diabetes Skin: reports: None Smoking Status: Never smoker - Surgical History General: Colonoscopy Cardiothoracic: Coronary stent Orthopedic: Spine surgery Exam General: Alert, Oriented x3, Cooperative Dental: Other (cap) Mouth Openin Fingerbreadth Neck Mobility: Limited Mallampati classification: II Thyromental Distance: greater than 6 cm Respiratory: Lungs clear, Normal breath sounds, No respiratory distress, No accessory muscle use Cardiovascular: Regular rate, Normal S1, Normal S2, No murmurs Mental/Cognitive Status: Alert/Oriented X3, Normal for patient Cognitive Status: Within normal limits Plan Anesthesia Type: MAC Consent for Procedure(s) Verified and Reviewed: Yes Code Status: Attempt Resuscitation ASA classification: 2-Mild systemic disease Is this case an emergency?: No
[2018-08-14] MEDS ORDERED: LIDOCAINE-MPF 2% 5 ML VIAL IM ONE (16:45)
[2018-08-14] MEDS ORDERED: PROPOFOL 200 MG/20 ML VIAL IVP ONE (16:45)
[2018-08-14 16:59] VITALS: BP 145/86
== END 2018-08-14 13:17 | disposition home or self-care (01) ==
LOC: SDS 13:16
PROVIDERS: ATTEND Internal Medicine
PROC: 0DBP8ZZ Excision of Rectum, Via Natural or Artificial Opening Endoscopic (ICD-10-PCS; principal; 2018-08-14 14:30)
DX: Z12.11 Encounter for screening for malignant neoplasm of colon (principal); K62.1 Rectal polyp; K64.1 Second degree hemorrhoids; K62.89 Other specified diseases of anus and rectum; K57.30 Diverticulosis of large intestine without perforation or abscess without bleeding; I10 Essential (primary) hypertension; G47.30 Sleep apnea, unspecified; I25.10 Atherosclerotic heart disease of native coronary artery without angina pectoris; E11.9 Type 2 diabetes mellitus without complications; Z95.5 Presence of coronary angioplasty implant and graft; Z79.84 Long term (current) use of oral hypoglycemic drugs; Z79.899 Other long term (current) drug therapy; Z79.82 Long term (current) use of aspirin
CPT/HCPCS: 45380; J7120

== ENCOUNTER 2019-01-28 08:14 | Outpatient (CLI) | payer OTHER ==
[2019-01-28 09:28] LABS: HB2 TOTAL 17.7 g/dL; HEMOGLOBIN A1C 0.85 g/dL; HEMOGLOBIN A1C % 6.5 % (4.6-6.2)
[2019-01-28 09:59] LABS: ALBUMIN 4.6 g/dL (3.2-5.5); ALBUMIN/GLOBULIN RATIO 1.4 (1.0-2.2); ALKALINE PHOSPHATASE 51 IU/L (42-121); ALT ALANINE AMINOTRANSFERASE 73 IU/L (10-60); AST ASPARTATE AMINOTRANSFERASE 34 IU/L (10-42); BILIRUBIN,TOTAL 0.6 mg/dL (0.2-1.0); BUN - BLOOD UREA NITROGEN 28 mg/dL (6-20); CHOL/HDL RATIO 4.1 (<5.0); CHOLESTEROL 114 mg/dL; CREATININE 1.3 mg/dL (0.6-1.2); GFR - MDRD 57 (>89); HDL CHOLESTEROL 28 mg/dL; LDL CHOLESTEROL,CALCULATED 35 mg/dL; LDL/HDL RATIO 1.3 (<3.6); TOTAL PROTEIN 7.9 g/dL (6.7-8.2); VLDL CHOLESTEROL 51 mg/dL
[2019-01-28 10:07] LABS: CALCIUM 9.1 mg/dL (8.5-10.3); CARBON DIOXIDE - CO2 27 mmol/L (21-32); CHLORIDE 100 mmol/L (101-111); GLUCOSE 172 mg/dL (70-100); SODIUM 140 mmol/L (135-145)
== END 2019-01-28 08:15 | disposition home or self-care (01) ==
LOC: LAB 08:14
PROVIDERS: ATTEND Internal Medicine
DX: E11.8 Type 2 diabetes mellitus with unspecified complications (principal); E78.5 Hyperlipidemia, unspecified
CPT/HCPCS: 36415; 80053; 80061; 83036; 83721

== ENCOUNTER 2019-07-16 13:50 | Outpatient (CLI) | payer OTHER | END 2019-07-16 13:51 | disposition home or self-care (01) | LOC: LAB 13:50 | PROVIDERS: ATTEND Urology | DX: C61 Malignant neoplasm of prostate (principal); N39.0 Urinary tract infection, site not specified | CPT/HCPCS: 87086 ==

== ENCOUNTER 2022-09-18 13:52 | Outpatient (CLI) | payer OTHER ==
[2022-09-18 14:22] LABS: BASOPHILS # (AUTO) 0.1 10^3/uL (0.0-0.1); BASOPHILS % (AUTO) 0.9 %; EOSINOPHILS # (AUTO) 0.2 10^3/uL (0.0-0.7); EOSINOPHILS % (AUTO) 2.3 %; HCT - HEMATOCRIT 46.6 % (42.0-52.0); HGB - HEMOGLOBIN 16.5 g/dL (14.0-18.0); LYMPHOCYTES # (AUTO) 2.5 10^3/uL (1.5-3.5); LYMPHOCYTES % (AUTO) 23.7 %; MEAN CORPUSCULAR HEMOGLOBIN 31.8 pg (27.0-31.0); MEAN CORPUSCULAR HGB CONC 35.4 g/dL (32.0-36.0); MEAN CORPUSCULAR VOLUME 89.8 fL (80.0-94.0); MEAN PLATELET VOLUME 10.8 fL (7.4-11.4); MONOCYTES # (AUTO) 0.8 10^3/uL (0.0-1.0); MONOCYTES % (AUTO) 7.2 %; NEUTROPHILS # (AUTO) 6.8 10^3/uL (1.5-6.6); NEUTROPHILS % (AUTO) 64.9 %; PLT - PLATELET COUNT 266 10^3/uL (130-450); RED BLOOD COUNT 5.19 10^6/uL (4.70-6.10); RED CELL DISTRIBUTION WIDTH 13.2 % (12.0-15.0); WHITE BLOOD COUNT 10.4 x10^3/uL (4.8-10.8)
[2022-09-18 14:41] LABS: ALBUMIN 4.5 g/dL (3.2-5.5); ALBUMIN/GLOBULIN RATIO 1.4 (1.0-2.2); ALKALINE PHOSPHATASE 55 IU/L (42-121); ALT ALANINE AMINOTRANSFERASE 93 IU/L (10-60); AST ASPARTATE AMINOTRANSFERASE 45 IU/L (10-42); BILIRUBIN,TOTAL 0.6 mg/dL (0.2-1.0); BUN - BLOOD UREA NITROGEN 20 mg/dL (6-20); CALCIUM 9.2 mg/dL (8.5-10.3); CARBON DIOXIDE - CO2 23 mmol/L (21-32); CHLORIDE 101 mmol/L (101-111); CHOL/HDL RATIO 6.2 (<5.0); CHOLESTEROL 197 mg/dL; CREATININE 1.6 mg/dL (0.6-1.2); GFR - MDRD 44 (>89); GLUCOSE 181 mg/dL (70-100); HDL CHOLESTEROL 32 mg/dL; LDL CHOLESTEROL,CALCULATED 98 mg/dL; LDL/HDL RATIO 3.1 (<3.6); POTASSIUM 4.3 mmol/L (3.5-5.0); SODIUM 136 mmol/L (135-145); TOTAL PROTEIN 7.7 g/dL (6.7-8.2); TRIGLYCERIDES 337 mg/dL; VLDL CHOLESTEROL 67 mg/dL
[2022-09-18 21:08] LABS: ESTIMATED AVERAGE GLUCOSE 209 mg/dL (70-100); HEMOGLOBIN A1c% 8.9 % (4.27-6.07)
== END 2022-09-18 13:53 | disposition home or self-care (01) ==
LOC: LAB 13:52
PROVIDERS: ATTEND Internal Medicine
DX: I10 Essential (primary) hypertension (principal); E11.8 Type 2 diabetes mellitus with unspecified complications; E78.5 Hyperlipidemia, unspecified
CPT/HCPCS: 36415; 80053; 80061; 83036; 83721; 85025

== ENCOUNTER 2023-01-29 14:09 | Outpatient (CLI) | payer OTHER | END 2023-01-29 14:10 | disposition home or self-care (01) | LOC: LAB 14:09 | PROVIDERS: ATTEND Urology | DX: C61 Malignant neoplasm of prostate (principal) | CPT/HCPCS: 36415; 84153 ==

== ENCOUNTER 2023-08-08 15:16 | Outpatient (CLI) | payer OTHER | END 2023-08-08 15:17 | disposition home or self-care (01) | LOC: LAB 15:16 | PROVIDERS: ATTEND Physician Assistant | DX: C61 Malignant neoplasm of prostate (principal); Z12.5 Encounter for screening for malignant neoplasm of prostate | CPT/HCPCS: 36415; 84153 ==

== ENCOUNTER 2024-01-22 13:32 | Outpatient (CLI) | payer OTHER ==
[2024-01-22 13:45] LABS: BASOPHILS # (AUTO) 0.1 10^3/uL (0.0-0.1); BASOPHILS % (AUTO) 0.8 %; EOSINOPHILS # (AUTO) 0.3 10^3/uL (0.0-0.7); EOSINOPHILS % (AUTO) 2.7 %; HCT - HEMATOCRIT 42.8 % (42.0-52.0); LYMPHOCYTES # (AUTO) 2.3 10^3/uL (1.5-3.5); MEAN CORPUSCULAR HEMOGLOBIN 32.2 pg (27.0-31.0); MEAN CORPUSCULAR VOLUME 91.8 fL (80.0-94.0); MEAN PLATELET VOLUME 10.7 fL (7.4-11.4); MONOCYTES # (AUTO) 1.1 10^3/uL (0.0-1.0); MONOCYTES % (AUTO) 9.6 %; NEUTROPHILS # (AUTO) 7.4 10^3/uL (1.5-6.6); NEUTROPHILS % (AUTO) 65.5 %; PLT - PLATELET COUNT 218 10^3/uL (130-450); RED BLOOD COUNT 4.66 10^6/uL (4.70-6.10); RED CELL DISTRIBUTION WIDTH 13.1 % (12.0-15.0); WHITE BLOOD COUNT 11.3 x10^3/uL (4.8-10.8)
[2024-01-22 14:25] LABS: ALBUMIN 4.4 g/dL (3.2-5.5); ALBUMIN/GLOBULIN RATIO 1.6 (1.0-2.2); ALKALINE PHOSPHATASE 52 IU/L (42-121); ALT ALANINE AMINOTRANSFERASE 62 IU/L (10-60); AST ASPARTATE AMINOTRANSFERASE 25 IU/L (10-42); BILIRUBIN,TOTAL 0.6 mg/dL (0.2-1.0); BUN - BLOOD UREA NITROGEN 23 mg/dL (6-20); CALCIUM 9.5 mg/dL (8.5-10.3); CARBON DIOXIDE - CO2 26 mmol/L (21-32); CHLORIDE 104 mmol/L (101-111); CHOL/HDL RATIO 5.3 (<5.0); CHOLESTEROL 174 mg/dL; CREATININE 1.3 mg/dL (0.6-1.3); GFR - MDRD 56 (>89); GLUCOSE 143 mg/dL (74-104); HDL CHOLESTEROL 33 mg/dL; SODIUM 137 mmol/L (135-145); TOTAL PROTEIN 7.2 g/dL (6.4-8.9); TRIGLYCERIDES 412 mg/dL (48-352)
[2024-01-22 14:40] LABS: CREATININE,URINE 176.3 mg/dL; MICROALBUM/CREATININE RATIO,UR 78.3 ug/mg (<30.0); MICROALBUMIN,URINE 13.8 mg/dL
[2024-01-22 15:25] LABS: LDL CHOLESTEROL,DIRECT 91 mg/dL (75-193); LDLD/HDL RATIO 2.8 (<3.6)
[2024-01-22 21:36] LABS: ESTIMATED AVERAGE GLUCOSE 209 mg/dL (70-100); HEMOGLOBIN A1c% 8.9 % (4.27-6.07)
== END 2024-01-22 13:33 | disposition home or self-care (01) ==
LOC: LAB 13:32
PROVIDERS: ATTEND Physician Assistant
DX: E11.65 Type 2 diabetes mellitus with hyperglycemia (principal); E78.2 Mixed hyperlipidemia
CPT/HCPCS: 36415; 80053; 80061; 82043; 82570; 83036; 83721; 85025

== ENCOUNTER 2024-05-14 10:04 | Outpatient (CLI) | payer OTHER | END 2024-05-14 10:05 | disposition home or self-care (01) | LOC: LAB 10:04 | PROVIDERS: ATTEND Urology | DX: C61 Malignant neoplasm of prostate (principal) | CPT/HCPCS: 36415; 84153 ==

== ENCOUNTER 2024-06-06 10:57 | Outpatient (CLI) | payer OTHER ==
[2024-06-06 11:10] LABS: BASOPHILS # (AUTO) 0.1 10^3/uL (0.0-0.1); BASOPHILS % (AUTO) 0.8 %; EOSINOPHILS # (AUTO) 0.4 10^3/uL (0.0-0.7); EOSINOPHILS % (AUTO) 3.6 %; HGB - HEMOGLOBIN 15.7 g/dL (14.0-18.0); LYMPHOCYTES # (AUTO) 2.1 10^3/uL (1.5-3.5); LYMPHOCYTES % (AUTO) 21.8 %; MEAN CORPUSCULAR HEMOGLOBIN 31.5 pg (27.0-31.0); MEAN CORPUSCULAR HGB CONC 34.9 g/dL (32.0-36.0); MEAN CORPUSCULAR VOLUME 90.2 fL (80.0-94.0); MEAN PLATELET VOLUME 10.8 fL (7.4-11.4); MONOCYTES # (AUTO) 0.8 10^3/uL (0.0-1.0); MONOCYTES % (AUTO) 8.1 %; NEUTROPHILS # (AUTO) 6.2 10^3/uL (1.5-6.6); NEUTROPHILS % (AUTO) 65.1 %; PLT - PLATELET COUNT 256 10^3/uL (130-450); RED BLOOD COUNT 4.99 10^6/uL (4.70-6.10); RED CELL DISTRIBUTION WIDTH 12.9 % (12.0-15.0); WHITE BLOOD COUNT 9.6 x10^3/uL (4.8-10.8)
[2024-06-06 11:35] LABS: ESTIMATED AVERAGE GLUCOSE 166 mg/dL (70-100); HEMOGLOBIN A1c% 7.4 % (4.27-6.07)
[2024-06-06 12:39] LABS: ALBUMIN 4.6 g/dL (3.2-5.5); ALBUMIN/GLOBULIN RATIO 1.7 (1.0-2.2); ALKALINE PHOSPHATASE 53 IU/L (42-121); ALT ALANINE AMINOTRANSFERASE 54 IU/L (10-60); AST ASPARTATE AMINOTRANSFERASE 23 IU/L (10-42); BILIRUBIN,TOTAL 0.4 mg/dL (0.2-1.0); BUN - BLOOD UREA NITROGEN 14 mg/dL (6-20); CALCIUM 8.9 mg/dL (8.5-10.3); CARBON DIOXIDE - CO2 24 mmol/L (21-32); CHLORIDE 102 mmol/L (101-111); CHOL/HDL RATIO 6.6 (<5.0); CHOLESTEROL 192 mg/dL; CREATININE 1.1 mg/dL (0.6-1.3); GFR - MDRD 68 (>89); GLUCOSE 227 mg/dL (74-104); HDL CHOLESTEROL 29 mg/dL; LDL CHOLESTEROL,CALCULATED 91 mg/dL; LDL/HDL RATIO 3.1 (<3.6); POTASSIUM 3.9 mmol/L (3.5-4.5); SODIUM 135 mmol/L (135-145); TOTAL PROTEIN 7.3 g/dL (6.4-8.9); TRIGLYCERIDES 361 mg/dL; VLDL CHOLESTEROL 72 mg/dL
== END 2024-06-06 10:58 | disposition home or self-care (01) ==
LOC: LAB 10:57
PROVIDERS: ATTEND Physician Assistant
DX: I10 Essential (primary) hypertension (principal); E78.2 Mixed hyperlipidemia; E11.65 Type 2 diabetes mellitus with hyperglycemia; E11.8 Type 2 diabetes mellitus with unspecified complications
CPT/HCPCS: 36415; 80053; 80061; 82043; 82570; 83036; 83721; 85025

== ENCOUNTER 2025-07-21 10:51 | Observation (INO) ==
--- OUTSIDE RECORDS SUMMARY | 2025-07-21 11:42 | EXTERNAL MEDICAL SUMMARY RPT | Continuity of Care Document ---
Author Organization [facility] Address [address] [place] [id number] Phone Problems date description facility 2025-03-20 12:58 Malignant neoplasm of prostate [facility] 2025-03-20 13:02 Malignant neoplasm of prostate [facility] 2025-04-23 12:39 Type 2 diabetes mellitus withou t complications [employer] 2025-04-23 12:39 Essential (primary) hypertensio n [employer] 2025-04-23 12:39 Unspecified abnormal finding in specimens from other organs, systems and tissues [facility] 2025-04-27 09:39 Malignant neoplasm of prostate [facility] 2025-04-30 15:58 Malignant neoplasm of prostate [facility] 2025-05-01 00:01 Malignant neoplasm of prostate [facility] 2025-05-11 09:16 Malignant neoplasm of prostate [facility] 2025-05-11 09:16 Atherosclerotic hear t disease of jamul coronary artery without angina pectoris [employer] 2025-05-11 09:16 [facility] 2025-05-11 09:16 Hesitancy of micturition [employer] 2025-05-11 09:39 Malignant neoplasm of prostate [facility] 2025-05-11 09:39 Atherosclerotic hear t disease of jamul coronary artery without angina pectoris [facility] 2025-05-11 09:39 Other [facility] 2025-05-11 09:39 Hesitancy of micturition [employer] 2025-06-01 11:28 Malignant neoplasm of prostate [facility] 2025-06-01 11:28 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 [employer] 2025-06-01 11:28 Other specified diseases of [facility]25-06-01 12:34 Malignant neoplasm of prostate [facility] 2025-06-01 12:34 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 [facility] 2025-06-01 12:34 Other specified diseases of [facility] 2025-06-01 13:37 Malignant neoplasm of prostate [facility] 2025-06-01 13:37 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 [facility] 2025-06-01 13:37 Secondary malignant neoplasm of bone [facility] 2025-06-01 13:37 Other specified diseases of [facility] 2025-06-01 13:43 Malignant neoplasm of prostate [facility] 2025-06-01 13:43 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 [facility] 2025-06-01 13:43 Other specified diseases of [facility] 2025-06-02 00:04 Malignant neoplasm of prostate [facility] 2025-06-02 00:04 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 [facility] 2025-06-02 00:04 Other specified diseases of [facility] 2025-06-02 06:43 Malignant neoplasm of prostate [facility] 2025-06-02 06:43 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 [facility] 2025-06-02 06:43 Secondary malignant neoplasm of bone [facility] 2025-06-02 13:03 Malignant neoplasm of prostate [facility] 2025-06-02 13:03 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 [facility] 2025-06-02 13:03 Secondary malignant neoplasm of bone [facility] 2025-06-02 13:03 Other specified diseases of [facility] 2025-06-02 13:03 Encounter for genera l adult medical examination without abnormal findings [facility] 2025-06-02 14:20 Other specified diseases of [facility] 2025-06-03 13:05 Malignant neoplasm of prostate [facility] 2025-06-03 13:05 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 [facility] 2025-06-15 21:49 Other specified diseases of [facility] 2025-06-16 09:38 Other specified diseases of [facility] 2025-06-16 13:58 Other specified diseases of [facility] 2025-06-19 06:18 Other specified diseases of [facility] 2025-06-19 06:45 Other specified diseases of [facility] 2025-06-20 00:05 Other specified diseases of [facility] 2025-06-22 09:48 Malignant neoplasm of prostate [facility] 2025-06-22 09:48 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 2025-06-23 14:34 Malignant neoplasm of prostate 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 [facility] 2025 12:27 Malignant neoplasm of prostate [facility] 2025-06-25 14:35 Malignant neoplasm of prostate [facility] 2025-06-25 14:35 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 [facility] 2025-06-25 14:35 Secondary malignant neoplasm of bone [facility] 2025-06-25 14:35 Other specified diseases of [facility] 2025-06-25 14:35 Encounter for [facility] adult medical examination without abnormal findings [facility] 2025-06-25 14:35 Procedure and treatm ent not carried out, unspecified reason [facility] 2025-06-30 14:02 Other specified diseases of [facility] 2025-06-30 14:02 Personal history of colon polyp s, unspecified [facility] 2025-06-30 14:03 Other specified diseases of [facility] 2025-06-30 14:03 Personal history of colon polyp s, unspecified [facility] 2025-07-15 15:35 Malignant neoplasm of prostate [facility] 2025-07-15 15:35 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 [facility] 2025-07-15 15:36 Malignant neoplasm of prostate [facility] 2025-07-15 15:36 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 [facility] 2025-07-17 09:56 Malignant neoplasm of prostate [facility] 2025-07-17 09:56 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 MONOCYTES # (AUTO) 2025-06-01 13:50 [facility] 1.0 10 3/ul (missing) CREATININE 2025-06-01 13:50 [facility] 1.4 mg/dl As of May 2023 testing method has changed, this may include reference ranges. ALBUMIN/GLOBULIN RATIO 2025-06-01 13:50 [facility] 1.7 (missing) (missing) CEA - CARCINOEMBRYONIC ANTIGEN 2025-06-01 13:50 [facility] 1.7 ng/ml Social History date description facility
[2025-07-21 12:22] LABS: CARBON DIOXIDE - CO2 23.0 mmol/L (21-32)
[2025-07-21 12:25] LABS: BUN - BLOOD UREA NITROGEN 16.0 mg/dL (6-20); CREATININE 1.3 mg/dL (0.6-1.3); GFR - MDRD 56.0 (>89); PHOSPHORUS 3.1 mg/dL (2.5-5.0)
--- NOTE | 2025-07-21 13:08 | ED Physician Documentation ---
History of Present Illness Stated complaint Stated Complaint: HIGH POTASSIUM, REF FROM [facility] Chief complaint Chief Complaint: General History obtained from History obtained from: Patient Additonal information Additional information: 60-year-old gentleman who has resistant hypertension and because of that his rn surgery icu increased his spironolactone a couple weeks ago from 25 mg a day to 50. He was at the [facility] clinic today for a routine appointment for his prostate cancer and had labs drawn with a potassium of over 6 and was referred to the emergency department. He feels well. He denies chest pain, trouble breathing, pedal edema or urinary complaints. Meds/Allgy Home Medications Ambulatory Orders Medication Instructions Recorded Confirmed nitroglycerin 0.4 mg sublingual 0.4 mg sublingual PRN PRN chest 10/02/24 06/23/25 tablet (Nitrostat) pain aspirin 81 mg chewable tablet 81 mg PO DAILY #180 tabs 12/12/24 06/23/25 metformin 500 mg tablet,extended 2,000 mg (4 x 500 mg) PO QDAY #120 01/23/25 06/23/25 release 24 hr (Glucophage XR) tabs tamsulosin 0.4 mg capsule 0.4 mg PO HS #90 caps 06/23/25 bisoprolol fumarate 5 mg tablet 10 mg (2 x 5 mg) PO BI D #90 tabs 04/23/25 06/23/25 fluocinonide 0.05 % topical cream 1 applic topical BID 04/23/25 06/23/25 glimepiride 4 mg tablet 4 mg PO QDAY #90 tabs 06/23/25 ketoconazole 2 % topical cream 1 applic topical BID 06/23/25 spironolactone 25 mg tablet 50 mg PO QDAY 04/23/25 peg 3350-electrolytes 236 240 ml PO Q10M #4,000 mL 07/2006/23/25 gram-22.74 gram-6.74 gram-5.86 gram solution (Golytely) rosuvastatin 20 mg tablet 20 mg PO DAILY 06/16/2505/27 abiraterone 250 mg tablet 1,000 mg (4 x 250 mg) PO QAM #120 06/23/25 06/23/25 tabs prednisone 5 mg tablet 5 mg PO QDAY #30 tabs 06/23/25 amlodipine 10 mg tablet 10 mg PO DAILY #90 tabs 06/27 12/20 isosorbide mononitrate 120 mg 120 mg PO QAM #90 tabs 0 07/16/25 tablet,extended release 24 hr Allergies Allergies Allergy/AdvReac Type Severity Reaction Status Date / Time No Known Drug Allergies Allergy Verified 06/16/25 13:58 PFSH Active Problems All Active Problems (Updated 07/21/25 @ 13:08 by Zev Worley MD) Hyperkalemia (Acute) Mesentery metastasis of neuroendocrine tumor (Acute) Healthcare maintenance (Acute) Genetic counseling and testing (Acute) Secondary malignant neoplasm of bone (Acute) Encounter for antineoplastic chemotherapy (Acute) Prostate cancer metastatic to intrapelvic lymph node (Acute) Abnormal laboratory test result (Acute) Abnormal laboratory test (Acute) Hesitancy (Acute) Dark stools (Acute) Nevus (Acute) Insomnia (Acute) Chronic neck pain (Acute) Elevated PSA, between 10 and less than 20 ng/ml (Acute) Chronic low back pain (Acute 04/21/15) Dyslipidemia (Acute 04/21/15) Diabetes mellitus, type II (Acute 04/21/15) Essential (primary) hypertension (Acute) Medical History Medical History (Updated 07/21/25 @ 13:08 by Zev Worley MD) Tobacco use (04/21/15) ALKA (obstructive sleep apnea) does not use cpap Peripheral neuropathy Elevated liver enzymes (04/21/15) CAD (coronary artery disease) (09/09/15) Benign prostatic hyperplasia (04/21/15) Surgical History Surgical History (Updated 06/19/25 @ 09:40 by Beryl Veloz DO) History of esophagogastroduodenoscopy (EGD) (~06/19/25) erosive gastritis Hx of fusion of cervical spine History of colonoscopy (~06/19/25) 8 polyps, no bleeding H/O heart artery stent History of spinal fusion cervical fusion, laminectomy History of lumbar surgery Family History Family History (Updated 06/01/25 @ 11:57 by Jovany Vail MA) Mother Multiple sclerosis Cancer Father Cardiomyopathy Brother Bladder cancer Social History Social History (Updated 06/16/25 @ 14:42 by Natalie Gifford RN) If you are a former smoker, when did you quit? (Date/Year): 2014Sep 14 Number of Years Smoked: 30 How many cigarettes a day do you smoke? (20 cigarettes=1 Pk): 20 Second hand tobacco smoke exposure: No Do you dip or chew tobacco?: No Do you vape?: No Living arrangement: At home Marital Status: Single Living Condition: With friend(s) Support Person: Yes Physical Activity: None and Walking Level: Independent Do you feel safe in your home environment?: Yes History of physical, verbal, emotional, or financial abuse?: No ETOH Use: None Frequency: Occasional Substance Use: cannabis (any form) Substance Use Details: for sleep/pain at night POLST Patient has POLST: No Exam Exam Vital Signs: Vital Signs x48h Temp Pulse Resp BP Pulse Ox 07/21/25 11:26 36.8 C 67 16 150/79 H 97 Constitutional normal general appearance and no apparent distress Respiratory breath sounds equal bilaterally, normal respiratory effort and clear to auscultation bilaterally Cardiovascular normal heart rate noted, regular rhythm noted and no murmur Gastrointestinal abdomen soft to palpation and nontender to palpation Neurology GCS 15 Results Vitals Vitals: Vital Signs - 24 hr 07/21/25 11:26 07/21/25 11:27 Temperature 36.8 C Temperature Source Temporal Artery Scan Pulse Rate 67 Respiratory Rate 16 Blood Pressure 150/79 H O2 Saturation 97 O2 Source Room air Pain Intensity 4 0 Oxygen O2 Source Room air EKG (time done) 1126: EKG releavant findings:: EKG personally interpreted by author of this note. Relevant findings are: Twelve-lead EKG showing normal sinus rhythm with rate of 63. Single PAC on the rhythm strip. Noting that the ordering indication was hyperkalemia there is no wide QRS, peaked T waves, or other arrhythmia. Labs Labs: Laboratory Tests 07/21/25 12:09 Sodium 131 L Potassium 6.6 H* Chloride 105 Carbon Dioxide 23 Anion Gap 3.0 L BUN 16 Creatinine 1.3 Estimated GFR (MDRD) 56 L Glucose 189 H Calcium 9.6 Phosphorus 3.1 Magnesium 1.7 PD Medical Decision Making ED course ED course: This is a 60-year-old gentleman who presents with asymptomatic hyperkalemia likely related to recent increased dosing of spironolactone especially since he has normal renal function. He appears well without evidence of cardiac effect from the hyperkalemia on his EKG. We will give him normal saline, Lokelma, and Lasix. He will need to stop his spironolactone and talk with his rn surgery icu about how to treat his hypertension. Spoke with Dr. Aleman for observation at 1:08 PM. The patient and family are counseled as to the diagnosis and need for admission. This document was made in part using voice recognition software, while efforts are made to proofread this document, sound alike an grammatical errors may occur. Discharge Plan Discharge Patient Disposition: ED Place in Observation Condition: Stable Clinical Impression: Hyperkalemia Prescriptions: No Action tamsulosin 0.4 mg capsule 0.4 mg PO HS Qty: 90 3RF amlodipine 10 mg tablet 10 mg PO DAILY Qty: 90 1RF isosorbide mononitrate 120 mg tablet extended release 24 hr 120 mg PO QAM Qty: 90 1RF rosuvastatin 20 mg tablet 20 mg PO DAILY aspirin 81 mg tablet,chewable 81 mg PO DAILY Qty: 180 1RF spironolactone 25 mg tablet 50 mg PO QDAY ketoconazole 2 % cream 1 applic topical BID fluocinonide 0.05 % cream 1 applic topical BID bisoprolol fumarate 5 mg tablet 10 mg PO BID Qty: 90 1RF glimepiride 4 mg tablet 4 mg PO QDAY Qty: 90 1RF abiraterone 250 mg tablet 1,000 mg PO QAM Qty: 120 6RF Rx Instructions: must be taken on empty stomach, at least 1 hr before or 2 hrs after a meal/food prednisone 5 mg tablet 5 mg PO QDAY Qty: 30 6RF nitroglycerin [Nitrostat] 0.4 mg tablet, sublingual 0.4 mg sublingual PRN PRN (Reason: chest pain) Rx Instructions: For chest pain, place one tablet under the tongue every five minutes for up to three doses. If no relief call 911. metformin [Glucophage XR] 500 mg tablet extended release 24 hr 2,000 mg PO QDAY Qty: 120 6RF peg 3350-electrolytes [Golytely] 236-22.74-6.74 -5.86 gram recon soln 240 ml PO Q10M Qty: 4000 0RF Rx Instructions: until fecal effluent is clear Print Language: Pashto Stand Alone Forms: PCP List
[2025-07-21] MEDS: FUROSEMIDE 20 MG/2 ML VIAL IVP STA (13:34)
[2025-07-21] MEDS: SODIUM CHLORIDE 0.9% 1,000 ML IV STA (13:34)
[2025-07-21] MEDS: SODIUM ZIRCONIUM CYCLOSILICATE 5 GM PACKET PO STA (13:34)
--- NOTE | 2025-07-21 13:44 | HISTORY & PHYSICAL EXAMINATION ---
Chief Complaint Chief Complaint Chief Complaint: Sent to ER by [facility] History of Present Illness Admitted From [place] [facility] [place] History Obtained From Records Reviewed: [facility] History obtained from: ER provider and patient Exam Limitations: None History of Present Illness HPI Comment/Other: The patient has a history of hypertension that is resistant to treatment. His primary care provider is MANOLO Flood. He is also followed by the [place] system with a Microbiology Coordinator and Principal Strategist. And also sees pulmonology at the [facility] for obstructive sleep apnea that needs CPAP. His spironolactone was recently increased from 25 mg a day to 50 mg a day. He has physics instructor at the [place] is Dr. Kevin @ [phone] she evaluated him for hyperaldosteronism in the context of the mesenteric mass that was recently identified. He does not have a pheochromocytoma. I did try and contact her just to touch base on his new diagnosis and his complication from the spironolactone. She is currently not available but she said if it was an emergency we could call the nephrology fellow on-call at the [place] at [phone]. He was at the medical ambulatory clinic today because he has a prostatic adenocarcinoma, stage IV, [id number], Yani 7 with perineural invasion negative, but positive radiotracer uptake in the right external iliac chain node and anterior left sixth rib and a 4.8 cm mesenteric soft tissue mass suspicious for malignancy. He was being seen in the [facility] [place] start leuprolide, docetaxel, abiraterone. They did clinic labs and found him to have a potassium of 6.3. They sent him to the ER and repeat was 6.6. However, I spoke to general surgery who has been evaluating this patient. The patient was sent to Dr. Veloz to evaluate the mesenteric mass. She was asked to do a biopsy. She she did do an upper and lower endoscopy in May of this year. And then had him referred to [facility] to have a CT-guided biopsy of that mesenteric mass. The left sixth rib bone is negative for metastatic carcinoma. The right abdominal lymph node is positive for metastatic carcinoid tumor, low-grade. Proliferation index by Ki-67 is about 2%. This biopsy was done July 07. Originally reported July 10. And then the marker clone type/vendor species Block result was reported July 21. I am not sure that the oncologist is aware of this report. General surgery says that they are due to put a port on him in the next week. He has no symptoms Of the hyperkalemia. EKG does not have peaked T waves. He has received Lasix and sodium zirconium. The ER provider has reached out to me and asked if we could please place him in observation. We hope to get his potassium down below 5 so that he can be safely discharged. He will need follow-up with his physics instructor about his blood pressure. On review of systems he tells me that he slowed down over the last 2 to 3 years. He gets short of breath when he has to walk for too long. He sees okay, hears okay. 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 He denies problems with swallowing. Has lost lots of his teeth. No recent weight changes. He coughs on a daily basis from his old smoking history. But he brings up the same amount of phlegm the same color of phlegm. He does not have a history of congestive heart failure. He does get occasional swollen feet but not severely. Denies orthopnea. Just had a GI workup with an upper and lower endoscopy with the surgeon and he has gastritis and diverticulosis but no ulcers or cancer. His skin is always dry and gets flaky so he uses loss of lotion on his arms legs and scalp. He has chronic daily pain. [facility] with [facility] 5 years ago and has not gone back since. But he gives him a lot of credit for stabilizing his pain. When he first had his neck surgery in 2011 it was agonizing. He lost a lot of memory and woke up in the ICU after the procedure so he thinks he may have had some mild anoxic brain injury. From there he went on to have 1 more neck surgery and 2 lower back surgeries. So pain on a daily basis is a 5 out of a 10. His prostate drives him nuts. Dribbles, makes a mess. Gets up at night to pee all the time. He is not depressed but he is very fatalistic. If it was not for his roommates he would have already given up and . But he loves the people he lives with. He met a couple named EDMAR in [place] years ago. They helped him with his first neck surgery and then left. The neck came back with the second back surgery and have never left and they have been with him for 3 years. They help him take care of the house. Do the heavy lifting. He also has another friend moved in with his girlfriend and their son. And then he has 2 dogs. So he keeps on moving forward and doing what he has to do for the love that he has for these people's dogs. He has never had seizures. He does get dizzy when he gets up. He has not fallen yet. Should be using a cane but does not. Still has residual left leg weakness and numbness from where he had lumbar back problems. Meds/Allgy Home Medications Ambulatory Orders Medication Instructions Recorded Confirmed nitroglycerin 0.4 mg sublingual 0.4 mg sublingual PRN PRN chest 10/02/24 07/21/25 tablet (Nitrostat) pain aspirin 81 mg chewable tablet 81 mg PO DAILY #180 tabs 12/12/24 07/21/25 tamsulosin 0.4 mg capsule 0.4 mg PO HS #90 caps 07/21/25 bisoprolol fumarate 5 mg tablet 10 mg (2 x 5 mg) PO BI D #90 tabs 04/23/25 07/21/25 fluocinonide 0.05 % topical cream 1 applic topical BID 04/23/25 07/21/25 ketoconazole 2 % topical cream 1 applic topical BID 07/21/25 abiraterone 250 mg tablet 1,000 mg (4 x 250 mg) PO QAM #120 06/23/25 07/21/25 tabs amlodipine 10 mg tablet 10 mg PO DAILY #90 tabs 06/2707/21/25 isosorbide mononitrate 120 mg 120 mg PO QAM #90 tabs 0 07/16/25 07/21/25 tablet,extended release 24 hr bicalutamide 50 mg tablet 50 mg PO DAILY 07/21/2506/27 glimepiride 4 mg tablet 4 mg PO DAILY 07/21/2507/21 metformin 500 mg tablet,extended 2,000 mg PO DAILY 07/21/25 release 24 hr (Glucophage XR) prednisone 5 mg tablet 5 mg PO DAILY 07/21/2507/21 rosuvastatin 40 mg tablet 20 mg PO DAILY 07/21/2506/27 sodium bicarbonate 325 mg tablet 325 mg PO BID 5 07/21/25 Allergies Allergies Allergy/AdvReac Type Severity Reaction Status Date / Time No Known Drug Allergies Allergy Verified 06/16/25 13:58 PFSH Active Problems All Active Problems (Updated 07/21/25 @ 18:50 by Marilyn Aleman MD) Do not resuscitate (Acute) Carcinoid (except of appendix) (Acute) Hyperkalemia (Acute) Mesentery metastasis of neuroendocrine tumor (Acute) Genetic counseling and testing (Acute) Secondary malignant neoplasm of bone (Acute) Prostate cancer metastatic to intrapelvic lymph node (Acute) Dark stools (Acute) Nevus (Acute) Insomnia (Acute) Chronic neck pain (Acute) Chronic low back pain (Acute 04/21/15) Dyslipidemia (Acute 04/21/15) Diabetes mellitus, type II (Acute 04/21/15) Essential (primary) hypertension (Acute) Medical History Medical History Tobacco use (04/21/15) ALKA (obstructive sleep apnea) does not use cpap Peripheral neuropathy Elevated liver enzymes (04/21/15) CAD (coronary artery disease) (09/09/15) Benign prostatic hyperplasia (04/21/15) Surgical History Surgical History History of esophagogastroduodenoscopy (EGD) (~06/19/25) erosive gastritis Hx of fusion of cervical spine History of colonoscopy (~06/19/25) 8 polyps, no bleeding H/O heart artery stent History of spinal fusion cervical fusion, laminectomy History of lumbar surgery Family History Family History Mother Multiple sclerosis Cancer Father Cardiomyopathy Brother Bladder cancer Social History Social History Smoking Status: Former smoker If you are a former smoker, when did you quit? (Date/Year): 2014 Number of Years Smoked: 30 How many cigarettes a day do you smoke? (20 cigarettes=1 Pk): 20 Second hand tobacco smoke exposure: No Do you dip or chew tobacco?: No Do you vape?: No Patient requests smoking cessation consult: No Initiate information on smoking cessation: No Living arrangement: At home Marital Status: Single Living Condition: With friend(s) Support Person: Yes Physical Activity: None and Walking Level: Independent Do you feel safe in your home environment?: Yes History of physical, verbal, emotional, or financial abuse?: No ETOH Use: None Frequency: Occasional Substance Use: cannabis (any form) Substance Use Details: Uses cannabis for sleep POLST Patient has POLST: No POLST Questions POLST CPR Status: Do Not Attempt Resuscitation (DNAR) / Allow Natural POLST Level (Do not Attempt) Level of Medical Intervention: Selective Treatment Review of Systems Status of ROS: See HPI Prior Level of Functionality: Can drive a car. Can take care of himself with regards to ADLs. Relies on his roommates to do a lot of the hard working in the house with cleaning and cooking. 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 105.5 kg, well-nourished well-developed. Constitutional no apparent distress Portley demeanor with more weight around his chest and abdomen. Alert, oriented, can follow commands, lucid historian HENMO hearing grossly normal bilaterally Top of his scalp has AK's. Eyes PERRL and EOMs intact bilaterally Neck/C-Spine visual inspection normal Chest inspection of chest normal and palpation of chest normal Barrel chest Respiratory breath sounds equal bilaterally, normal respiratory effort, clear to auscultation bilaterally, no wheezes and no rales Cardiovascular normal heart rate noted and regular rhythm noted Gastrointestinal abdomen normal to inspection, abdomen soft to palpation, nontender to palpation and nontender to percussion Genitourinary no CVA tenderness Extremities normal to inspection Bowlegged Neurology automation application engineer II-XII intact and no movement abnormality noted Left leg has sensory deficit in comparison to right leg especially coming down the thigh Skin skin color normal, no rash and no lesions Conclusion/Plan Problem List (1) Hyperkalemia: Plan: This gentleman has a complicated history of resistant hypertension. The prostate cancer. And now complication of the use of spironolactone. He has not been on losartan for a few months. He is already followed by nephrology. I have left a message on her answering machine at the [place]. Plan: Observation status to bring down his potassium I will recheck his potassium this afternoon and then redosed his Lokelma if it is above 5 Plan to discharge when drops below 5 (2) Carcinoid (except of appendix): Plan: The patient started his oral medication for prostate cancer yesterday. He was supposed to get an infusion today. The infusion was canceled because of the potassium abnormality. I explained to him what we found with the microscopic description of his right abdominal lymph node needle core biopsy. I explained that the pathology evaluation argues against prostate carcinoma or lung adenocarcinoma. And it supports a diagnosis of carcinoid tumor. He will have to have a long discussion with Dr. Fuentes about what the future will be. He is worried that his port will get canceled. I think that his port will move forward next week with general surgery he will just get a new treatment plan. (3) Diabetes mellitus, type II: Plan: And resistant hypertension, and coronary artery disease, and hyperlipidemia. As well as continued symptomatic urinary symptoms of urgency, dribbling. I will resume his usual home meds except for the glimepiride because of renal excretion and hyperkalemia. He can resume that tomorrow. Qualifiers: Diabetes mellitus half-way insulin use: without half-way use Diabetes mellitus complication status: without complication Qualified Code(s): E11.9 - Type 2 diabetes mellitus without complications (4) Do not resuscitate: Plan: Advance care planning conversation held. Patient is a DO NOT RESUSCITATE. Please see discussion under separate note. Lab Results 07/21/25 16:56 Core Measures Anticipated LOS I expect patient to be DC'd or transferred within 96 hours.: Yes DVT/VTE - Prophylaxis VTE/DVT Device ordered at admit?: Yes
[2025-07-21] MEDS ORDERED: ONDANSETRON 4 MG/2 ML VIAL IVP PRN (13:59)
[2025-07-21] MEDS ORDERED: ONDANSETRON ODT 4 MG TABLET TL PRN (13:59)
[2025-07-21] MEDS ORDERED: oxyCODONE 5 MG TABLET PO PRN (13:59)
[2025-07-21] MEDS ORDERED: SODIUM CHLORIDE FLUSH 0.9% 10 ML SYRINGE IVP PRN (13:59)
[2025-07-21] MEDS ORDERED: ACETAMINOPHEN 325 MG TABLET PO PRN (13:59)
--- NOTE | 2025-07-21 15:34 | PHARMACY PROGRESS NOTE ---
Best Possible Medication History Admit Date and Time: 07/21/25 1310 Home Medications Medication Instructions Recorded Confirmed Type nitroglycerin 0.4 mg sublingual 0.4 mg sublingual PRN PRN chest 10/02/24 07/21/25 History tablet (Nitrostat) pain aspirin 81 mg chewable tablet 81 mg PO DAILY #180 tabs 12/12/24 07/21/25 Rx tamsulosin 0.4 mg capsule 0.4 mg PO HS #90 caps 07/21/25 Rx bisoprolol fumarate 5 mg tablet 10 mg (2 x 5 mg) PO BI D #90 tabs 04/23/25 07/21/25 Rx fluocinonide 0.05 % topical cream 1 applic topical BID 04/23/25 07/21/25 History ketoconazole 2 % topical cream 1 applic topical BID 07/21/25 History abiraterone 250 mg tablet 1,000 mg (4 x 250 mg) PO QAM #120 06/23/25 07/21/25 Rx tabs amlodipine 10 mg tablet 10 mg PO DAILY #90 tabs 06/2707/21/25 Rx isosorbide mononitrate 120 mg 120 mg PO QAM #90 tabs 0 07/16/25 07/21/25 Rx tablet,extended release 24 hr bicalutamide 50 mg tablet 50 mg PO DAILY 07/21/2506/27 History glimepiride 4 mg tablet 4 mg PO DAILY 07/21/2507/21 History metformin 500 mg tablet,extended 2,000 mg PO DAILY 07/21/25 History release 24 hr (Glucophage XR) prednisone 5 mg tablet 5 mg PO DAILY 07/21/2507/21 History rosuvastatin 40 mg tablet 20 mg PO DAILY 07/21/2506/27 History sodium bicarbonate 325 mg tablet 325 mg PO BID 07/21/25 History Processed by: Pharmacy (Patient interview completed by Clinical Program ConsultantMargaret. [facility] interview completed by myself) Medications reviewed in ED?: No Medication History completed: Yes Patient Interview: Completed Secondary Source(s): Pharmacy records ([facility]) and Insurance records [facility] Statement: As the person ultimately responsible for medication therapy, providers are able to order a medication from an existing home medication list in [facility] via the "Reconcile Routine" prior to Confirmation of that medication by system support technician. Such practice is discouraged except when the physician, in their clinical judgment, deems that a medical need exists for a medication without regard to previous use.
[2025-07-21 17:19] LABS: BUN - BLOOD UREA NITROGEN 17.0 mg/dL (6-20); CARBON DIOXIDE - CO2 23.0 mmol/L (21-32); CREATININE 1.4 mg/dL (0.6-1.3); GFR - MDRD 51.0 (>89)
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
[2025-07-21] MEDS: SODIUM CHLORIDE FLUSH 0.9% 10 ML SYRINGE IVP SCH (19:50)
[2025-07-21] MEDS: SODIUM ZIRCONIUM CYCLOSILICATE 5 GM PACKET PO ONE (20:11)
[2025-07-21] MEDS: PROPRANOLOL 10 MG TABLET PO SCH (20:38)
[2025-07-22 05:28] LABS: HCT - HEMATOCRIT 39.3 % (42.0-52.0); HGB - HEMOGLOBIN 13.5 g/dL (14.0-18.0); MEAN PLATELET VOLUME 10.8 fL (7.4-11.4); NRBC ABSOLUTE COUNT (AUTO) 0.00 x10^3/uL; NUCLEATED RED BLOOD CELLS AUTO 0.0 /100WBC; PLT - PLATELET COUNT 212 10^3/uL (130-450); RED CELL DISTRIBUTION WIDTH 12.5 % (12.0-15.0)
[2025-07-22 05:45] LABS: BUN - BLOOD UREA NITROGEN 16.0 mg/dL (6-20); CARBON DIOXIDE - CO2 20.0 mmol/L (21-32); CREATININE 1.3 mg/dL (0.6-1.3); GFR - MDRD 56.0 (>89)
[2025-07-22] MEDS: ISOSORBIDE MONONITRATE ER 30 MG TABLET PO SCH (08:37)
[2025-07-22] MEDS: TAMSULOSIN 0.4 MG CAPSULE PO SCH (08:37)
--- NOTE | 2025-07-22 09:27 | Discharge Summary ---
Discharge Summary Admit Date: 07/21/25 Discharge Date: 07/22/25 Discharging Provider: Dr. Chela Smith Primary Care Provider: Steven Chavez Code Status: Do Not Attempt Resuscitation Discharge Facility Name: Home DIAGNOSES Admission Diagnoses: Discharge Diagnoses with Status of Each Condition: Hyperkalemiaresolved. Advised to hold spironolactone. Carcinoid tumor needs close follow-up with primary care provider. Diabetes mellitus, type IIresume home medications. HPI History of Present Illness: Per Dr. Aleman: The patient has a history of hypertension that is resistant to treatment. His primary care provider is MANOLO Flood. 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 And also sees pulmonology at the [facility] for obstructive sleep apnea that needs CPAP. His spironolactone was recently increased from 25 mg a day to 50 mg a day. He has auto transmission specialist at the [facility] is Dr. Kevin @ [phone] she evaluated him for hyperaldosteronism in the context of the mesenteric mass that was recently identified. He does not have a pheochromocytoma. I did try and contact her just to touch base on his new diagnosis and his complication from the spironolactone. She is currently not available but she said if it was an emergency we could call the nephrology fellow on-call at the [facility] at [phone]. He was at the medical ambulatory clinic today because he has a prostatic adenocarcinoma, stage IV, [id number], Yani 7 with perineural invasion negative, but positive radiotracer uptake in the right external iliac chain node and anterior left sixth rib and a 4.8 cm mesenteric soft tissue mass suspicious for malignancy. He was being seen in the [facility] to start leuprolide, docetaxel, abiraterone. They did clinic labs and found him to have a potassium of 6.3. They sent him to the ER and repeat was 6.6. However, I spoke to general surgery who has been evaluating this patient. The patient was sent to Dr. Veloz to evaluate the mesenteric mass. She was asked to do a biopsy. She she did do an upper and lower endoscopy in May of this year. And then had him referred to [facility] to have a CT-guided biopsy of that mesenteric mass. The left sixth rib bone is negative for metastatic carcinoma. The right abdominal lymph node is positive for metastatic carcinoid tumor, low-grade. Proliferation index by Ki-67 is about 2%. This biopsy was done July 07. Originally reported July 10. And then the marker clone type/vendor species Block result was reported July 21. I am not sure that the oncologist is aware of this report. General surgery says that they are due to put a port on him in the next week. He has no symptoms Of the hyperkalemia. EKG does not have peaked T waves. He has received Lasix and sodium zirconium. The ER provider has reached out to me and asked if we could please place him in observation. We hope to get his potassium down below 5 so that he can be safely discharged. He will need follow-up with his auto transmission specialist about his blood pressure. On review of systems he tells me that he slowed down over the last 2 to 3 years. He gets short of breath when he has to walk for too long. He sees okay, hears okay. 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 He denies problems with swallowing. Has lost lots of his teeth. No recent weight changes. He coughs on a daily basis from his old smoking history. But he brings up the same amount of phlegm the same color of phlegm. He does not have a history of congestive heart failure. He does get occasional swollen feet but not severely. Denies orthopnea. Just had a GI workup with an upper and lower endoscopy with the surgeon and he has gastritis and diverticulosis but no ulcers or cancer. His skin is always dry and gets flaky so he uses loss of lotion on his arms legs and scalp. He has chronic daily pain. [facility] had a [facility] out with them at the [facility] clinic 5 years ago and has not gone back since. But he gives him a lot of credit for stabilizing his pain. When he first had his neck surgery in 2011 it was agonizing. He lost a lot of memory and woke up in the ICU after the procedure so he thinks he may have had some mild anoxic brain injury. From there he went on to have 1 more neck surgery and 2 lower back surgeries. So pain on a daily basis is a 5 out of a 10. His prostate drives him nuts. Dribbles, makes a mess. Gets up at night to pee all the time. He is not depressed but he is very fatalistic. If it was not for his roommates he would have already given up and . But he loves the people he lives with. He met a couple named EDMAR in [place] years ago. They helped him with his first neck surgery and then left. The neck came back with the second back surgery and have never left and they have been with him for 3 years. They help him take care of the house. Do the heavy lifting. He also has another friend moved in with his girlfriend and their son. And then he has 2 dogs. So he keeps on moving forward and doing what he has to do for the love that he has for these people's dogs. He has never had seizures. He does get dizzy when he gets up. He has not fallen yet. Should be using a cane but does not. Still has residual left leg weakness and numbness from where he had lumbar back problems. HOSPITAL COURSE Hospital Course: Patient is a 60-year-old male with a history of prostate cancer, carcinoid tumor diagnosed this admission who presented with hyperkalemia. He had no EKG changes noted due to this. He was largely asymptomatic. This was likely attributed to recently doubling of his spironolactone. He was advised to hold this on discharge. He received a dose of Lokelma, Lasix and his potassium dropped to normal limits. He will need close follow-up in the outpatient with a primary care provider to continue to check his labs. He also sees a auto transmission specialist, who he will need to follow-up with in the outpatient setting. Overall, he was deemed stable for discharge. However, it was reiterated that he needs very close follow-up with his oncologist, his auto transmission specialist, and his primary care provider. He demonstrated understanding. ALLERGIES Allergies Allergy/AdvReac Type Severity Reaction Status Date / Time No Known Drug Allergies Allergy Verified 06/16/25 13:58 MEDICATIONS Ambulatory Orders Medication Instructions Recorded Confirmed nitroglycerin 0.4 mg sublingual 0.4 mg sublingual PRN PRN chest 10/02/24 07/21/25 tablet (Nitrostat) pain aspirin 81 mg chewable tablet 81 mg PO DAILY #180 tabs 12/12/24 07/21/25 tamsulosin 0.4 mg capsule 0.4 mg PO HS #90 caps 04/09/ 25 08/26/25 bisoprolol fumarate 5 mg tablet 10 mg (2 x 5 mg) PO BI D #90 tabs 04/23/25 07/21/25 fluocinonide 0.05 % topical cream 1 applic topical BID 04/23/25 07/21/25 ketoconazole 2 % topical cream 1 applic topical BID 07/21/25 abiraterone 250 mg tablet 1,000 mg (4 x 250 mg) PO QAM #120 06/23/25 07/21/25 Held on 07/22/25. tabs Instructions: Resume on 07/29/25. Please hold until follow up with your oncologist. amlodipine 10 mg tablet 10 mg PO DAILY #90 tabs 06/2707/21/25 isosorbide mononitrate 120 mg 120 mg PO QAM #90 tabs 0 07/16/25 07/21/25 tablet,extended release 24 hr bicalutamide 50 mg tablet 50 mg PO DAILY 07/21/2506/27 glimepiride 4 mg tablet 4 mg PO DAILY 07/21/2507/21 metformin 500 mg tablet,extended 2,000 mg PO DAILY 07/21/25 release 24 hr (Glucophage XR) prednisone 5 mg tablet 5 mg PO DAILY 07/21/2507/21 rosuvastatin 40 mg tablet 20 mg PO DAILY 07/21/2506/27 sodium bicarbonate 325 mg tablet 325 mg PO BID 5 07/21/25 PHYSICAL EXAM AT DISCHARGE Vital Signs: Vital Signs x48h Temp Pulse Resp BP Pulse Ox O2 Flow Rate 07/22/25 11:54 97.9 F 80 15 120/66 97 0 07/22/25 09:00 97.7 F 72 12 164/85 H 97 5 foot 10 inch white male with a berrios, male pattern baldness, partially edentulous. 105.5 kg, well-nourished well-developed. Constitutional no apparent distress Portley demeanor with more weight around his chest and abdomen. Alert, oriented, can follow commands, lucid historian [facility] hearing grossly normal bilaterally Top of his scalp has AK's. 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 Follow up nephrology. Follow up oncology. TIME SPENT Time Spent in Discharge (Minutes): 35 Discharge Plan Discharge Patient Disposition: Home, Self Care Condition: Stable Prescriptions: Continued tamsulosin 0.4 mg capsule 0.4 mg PO HS Qty: 90 3RF amlodipine 10 mg tablet 10 mg PO DAILY Qty: 90 1RF isosorbide mononitrate 120 mg tablet extended release 24 hr 120 mg PO QAM Qty: 90 1RF bicalutamide 50 mg tablet 50 mg PO DAILY Patient Comments: TAKE 1 TABLET BY MOUTH ONCE DAILY rosuvastatin 40 mg tablet 20 mg PO DAILY sodium bicarbonate 325 mg tablet 325 mg PO BID prednisone 5 mg tablet 5 mg PO DAILY glimepiride 4 mg tablet 4 mg PO DAILY metformin [Glucophage XR] 500 mg tablet extended release 24 hr 2,000 mg PO DAILY aspirin 81 mg tablet,chewable 81 mg PO DAILY Qty: 180 1RF ketoconazole 2 % cream 1 applic topical BID fluocinonide 0.05 % cream 1 applic topical BID bisoprolol fumarate 5 mg tablet 10 mg PO BID Qty: 90 1RF nitroglycerin [Nitrostat] 0.4 mg tablet, sublingual 0.4 mg sublingual PRN PRN (Reason: chest pain) Rx Instructions: For chest pain, place one tablet under the tongue every five minutes for up to three doses. If no relief call 911. Held abiraterone 250 mg tablet 1,000 mg PO QAM Qty: 120 6RF Hold Instructions: Resume on 07/29/25. Please hold until follow up with your oncologist. Patient Comments: Taking at 6AM, started on Sunday. taking w/ 5mg prednisone Rx Instructions: must be taken on empty stomach, at least 1 hr before or 2 hrs after a meal/food Diet: Regular Interventions: Belongings Inventory Last Done: 07/21/25 15:01 Discharge Last Done: 07/22/25 12:03 Discharge Checklist - Nursing Last Done: 07/22/25 12:03 Discharge Vital Signs (30 Minutes) Last Done: 07/22/25 11:54 Health Concerns: You came in because you were found to have high potassium levels. We gave you some medications to help bring this down while you were here. It is now back down to a normal level. As we discussed, please hold your spironolactone on discharge. You can continue your home amlodipine, Imdur, as well as your bisoprolol. You will need to follow-up with nephrology in the outpatient setting to make sure that your blood pressure continues to be under control with the removal of the spironolactone. As we also talked about, you need to closely follow-up with your oncologist in the outpatient setting. He will be talking through what the next steps look like for your treatment plan. Please call them to reschedule this appointment KAYLA. We are glad you are feeling better, thanks for allowing us to take care of you. Print Language: Gambian Patient Instructions: Hyperkalemia Dc Stand Alone Forms: PCP List Follow-up Care: Blayne Fuentes MD [Provider Admit Priv/Credential, Oncology/Hematology] Vitals documented within 30 minutes of discharge?: Yes
[2025-07-22 09:43] VITALS: O2SAT 97
[2025-07-22 11:55] VITALS: BP 120/66; TEMP 97.9
== END 2025-07-22 12:05 | disposition home or self-care (01) ==
LOC: MS2 10:51 → ED 10:51 → MS2 13:59
PROVIDERS: ADMIT Specialist; ATTEND Specialist